=== PATIENT | female | born 1980 | race Caucasian/White ===

== ENCOUNTER 2016-05-05 14:56 | Emergency (ER) | payer OTHER ==
[~2016-05-05] VITALS: Ht 162.6 cm; Wt 105.4 kg
[~2016-05-05 14:56] MED LIST: BCPILLS PO; CARI350T28 PO; TRAM-10 PO
[2016-05-05 15:10] VITALS: Ht 162.6 cm; Wt 105.4 kg
[2016-05-05] MEDS ORDERED: PROMETHAZINE HCL INJ 25 MG/ML 1 ML VIAL IM STA (15:20)
[2016-05-05] MEDS ORDERED: MoRPHine SULFATE 10 MG/ML CARP/VIAL IM STA (15:20)
[2016-05-05] MEDS ORDERED: KETOROLAC TROMETHAMINE 60 MG/2 ML VIAL IM STA (15:20)
--- NOTE | 2016-05-05 15:53 | EMERGENCY ROOM VISIT NOTE ---
History Report prepared by Tono: Yokasta Saab Under the Supervision of: Dr. Tk Quan D.O. First contact with patient: 15:16 Chief Complaint: HEADACHE Stated Complaint: MIGRAINE WITH NAUSEA History of Present Illness The patient is a 35 year old female who presents to the Emergency Room with complaints of a persistent left sided headache starting this morning. She denies any pain radiation. She also complains of nausea but denies vomiting. She took Tramadol and Tylenol with some relief. She has a history of migraine headaches and describes her current headache to be similar. Her last similar episode occurred about 2 months ago. She denies any recent falls, trauma, or injuries to the head. She denies fevers, numbness, weakness, or any other complaints. She is on control and normally does not have menstrual periods. Source of History: patient Onset: this morning Position: head (left sided) Timing: other (persistent) Modifying Factors (Relieving): other (Tramadol and Tylenol with some relief) Associated Symptoms: + nausea, No fevers, No numbness, No vomiting, No weakness Review of Systems See HPI for pertinent positives & negatives. A total of 10 systems reviewed and were otherwise negative. Past Medical & Surgical Medical Problems: (1) Appendicitis (2) Right flank pain Family History Diabetes mellitus FH: heart disease Hypertension Social History Smoking Status: Never Smoker Marital Status: single Occupation Status: employed Current/Historical Medications Scheduled Control Pills ( Control Pills), 1 TAB PO DAILY Scheduled PRN Tramadol (Ultram), 50 MG PO Q6H PRN for Pain Allergies Coded Allergies: Efavirenz (Verified Allergy, Mild, RASH, 05/05/16) Lamivudine (Verified Allergy, Mild, RASH, 05/05/16) Penicillins (Verified Allergy, Mild, RASH, 05/05/16) Zidovudine (Verified Allergy, Mild, RASH, 05/05/16) Sertraline (Verified Adverse Reaction, Unknown, PER TOMAS WOODALL NP, NO ZOLOFT WHILE AT [facility] (07/27/11), 05/05/16) Physical Exam Vital Signs Date Time Temp Pulse Resp B/P Pulse Ox O2 Delivery O2 Flow Rate FiO2 05/05/16 17:08 69 18 135/73 99 Room Air 05/05/16 17:07 36.3 70 18 142/101 97 05/05/16 15:10 36.3 70 18 142/101 97 Room Air Physical Exam GENERAL: Patient is awake, alert, and in no acute distress. Patient is resting comfortably and showing no signs of anxiety EYES: The conjunctivae are clear. The pupils are round and reactive. EARS, NOSE, MOUTH AND THROAT: The nose is without any evidence of any deformity. Mucous membranes are moist tongue is midline NECK: The neck is nontender and supple. RESPIRATORY: Normal respiratory effort is noted there is no evidence of wheezing rhonchi or rales CARDIOVASCULAR: Regular rate and rhythm noted there no murmurs rubs or gallops normal S1 normal S2 GASTROINTESTINAL: The abdomen is soft. Bowel sounds are present in all quadrants. Abdomen is nontender MUSCULOSKELETAL/EXTREMITIES: There is no evidence of gross deformity full range of motion is noted in the hips and shoulders SKIN: There is no obvious evidence of any rash. There are no petechiae, pallor or cyanosis noted. NEUROLOGIC: Patient is awake alert and oriented x3 strength is symmetric patellar reflexes are 2+ bilaterally Medical Decision & Procedures Medications Administered Medications (Trade) Dose Ordered Sig/Helder Route Start Time Stop Time Status Last Admin Dose Admin Morphine Sulfate (MoRPHine SULFATE INJ) 6 mg NOW STAT IM 05/05/16 15:20 05/05/16 15:21 DC 05/05/16 15:58 6 MG Ketorolac Tromethamine (Toradol Inj) 60 mg NOW STAT IM 05/05/16 15:20 05/05/16 15:21 DC 05/05/16 16:00 60 MG Promethazine HCl (Phenergan Inj) 25 mg NOW STAT IM 05/05/16 15:20 05/05/16 15:21 DC 05/05/16 15:58 25 MG ED Course 1516: The patient was evaluated in room A10. A complete history and physical examination were performed. 1520: Phenergan Inj 25 mg IM, Toradol Inj 60 mg IM, Morphine Sulfate 6 mg IM 1715: Upon reevaluation, the patient is feeling better. I discussed the results and treatment plan with her. She verbalized agreement of the treatment plan. The patient was discharged home. Medical Decision Prior records/ancillary studies reviewed. Triage Nursing notes reviewed. The patient's history was concerning for headache. Differential diagnosis: Etiologies such as migraine headache, meningitis, sinusitis, CO exposure, ICH, SAH, infection, tumor, headache, sinus thrombosis, arterial dissection, as well as others were entertained. The patient is a 35-year-old female who presented to the emergency department for an evaluation of headache. The patient is a history of chronic migraine headaches and states that this is similar to her previous headaches. She had no meningismus or fever. She has no focal neurologic deficit. She was treated with pain medication that she received in the past and on subsequent reevaluation she was feeling much better. I discussed the patient's laboratory and radiographic studies with her. She was encouraged to rest and avoid any strenuous activity. She was also encouraged to follow-up with her primary care physician as soon as possible. She was also encouraged to continue all medications as prescribed and return to the emergency department immediately if symptoms change worsen or the need arises. Impression Primary Impression: Headache Scribe Attestation The scribe's documentation has been prepared under my direction and personally reviewed by me in its entirety. I confirm that the note above accurately reflects all work, treatment, procedures, and medical decision making performed by me. Departure Information Dispostion Home / Self-Care Referrals Geovani Sebastian M.D. (PCP) Forms HOME CARE DOCUMENTATION FORM, IMPORTANT VISIT INFORMATION Patient Instructions Headache Pain, My [facility] Additional Instructions Resident continue all medications as prescribed. Rest and avoid any strenuous activity. Follow-up with your family doctor soon as possible. Problem Qualifiers Primary Impression: Headache Headache type: unspecified Headache chronicity pattern: acute headache Intractability: not intractable Qualified Codes: R51 - Headache
[2016-05-05 17:07] VITALS: TEMP 36.3
[2016-05-05 17:08] VITALS: BP 135/73; PULSE 69; O2SAT 99
== END 2016-05-05 17:08 | disposition home or self-care (01) ==
LOC: C.EDB 14:57 → C.EDA 17:08
DX: R51 Headache (principal); Z87.19 Personal history of other diseases of the digestive system; Z88.0 Allergy status to penicillin; Z88.8 Allergy status to other drugs, medicaments and biological substances; Z83.3 Family history of diabetes mellitus; Z82.49 Family history of ischemic heart disease and other diseases of the circulatory system

== ENCOUNTER 2016-10-25 19:41 | Emergency (ER) | payer OTHER ==
[~2016-10-25] VITALS: Ht 162.6 cm; Wt 106.0 kg
[~2016-10-25 19:41] MED LIST changes: -CARI350T28 PO
[2016-10-25 19:47] VITALS: TEMP 36.4; Ht 162.6 cm; Wt 106.0 kg
[2016-10-25] MEDS ORDERED: KETOROLAC TROMETHAMINE 60 MG/2 ML VIAL IM STA (21:29)
[2016-10-25] MEDS ORDERED: PROMETHAZINE HCL INJ 25 MG/ML 1 ML VIAL IM STA (21:29)
--- NOTE | 2016-10-25 21:54 | EMERGENCY ROOM VISIT NOTE ---
ED Visit Note First contact with patient: 21:10 CHIEF COMPLAINT: Severe headache today HISTORY OF PRESENT ILLNESS: This 36-year-old female patient presents to the emergency department with complaint of a migraine that started today. She had gradual onset of a severe, left-sided headache approximately 8 hours ago. Patient states that she normally takes tramadol for her headaches as soon as they start, however she was at nursing clinical today and wasn't able to take tramadol until she got home around 5 PM today. She has not had any improvement in the headache with tramadol. There has been associated photophobia, phonophobia, dizziness, nausea but no vomiting. The patient denies fever or chills recently, and there is no weakness or numbness of the extremities. There is no difficulty with speech or vision. No trauma to the head and no neck pain. The pain is severe, constant, and it is slowly increasing in severity. This is not the worst headache of the life and is similar to previous migraines. Previous imaging studies of the brain (CT scans) have been normal. REVIEW OF SYSTEMS: Ears: No pain or change in hearing. Neck: No pain, stiffness, or swelling. Neurological: No changes in mental status, vertigo, focal weakness, numbness. Cardiac: No chest pain, diaphoresis, dyspnea on exertion, orthopnea, pedal edema, or palpitations. Respiratory: No cough, change in sputum, wheezes, hemoptysis, shortness of breath, or stridor. Gastrointestinal: No abdominal pain, blood in stools, diarrhea, loss of appetite, nausea, or vomiting. Skin: No rash, new lesions, or masses. General : No fever or chills, fatigue, loss of appetite, or significant recent weight gain or loss. PMH: The patient is healthy; there is no significant medical or surgical history. SOCIAL HISTORY: Patient lives at home. PHYSICAL EXAM: Vital Signs: Reviewed Nurse's notes. MENTAL STATUS: Alert, oriented, and coherent. In great distress from the headache. NECK: Supple, nontender, no lymphadenopathy. HEART: Regular rhythm and normal rate without murmurs, ectopy, gallops, or rubs. SKIN: Normal. NEUROLOGICAL: Pupils are round, equal and react to light. The optic fundi are normal and the discs are flat. EOMs are full and there is no nystagmus. The patient moves all extremities well and the gait is normal. No neurologic deficits noted. EMERGENCY DEPARTMENT COURSE: I examined the patient. Neurologic exam is normal and patient states that this is very similar to previous migraines for her. The patient was given IM Toradol 60 mg and IM Phenergan 25 mg, which she has had in the past with good relief. On reassessment, the patient reports significant relief of the pain. She is requesting a referral to see a neurologist for further management of her headaches which she states have become more frequent for her, this was provided. She was encouraged to follow up with her PCP in the meantime, and given return precautions should any of her symptoms worsen, she verbalized understanding. Patient was discharged home in stable condition and ambulatory. Problem List Medical Problems: (1) Appendicitis Status: Resolved (2) Right flank pain Status: Resolved Current/Historical Medications Scheduled Control Pills ( Control Pills), 1 TAB PO DAILY Scheduled PRN Tramadol (Ultram), 50 MG PO Q6H PRN for Pain Allergies Coded Allergies: Efavirenz (Verified Allergy, Mild, RASH, 10/25/16) Lamivudine (Verified Allergy, Mild, RASH, 10/25/16) Penicillins (Verified Allergy, Mild, RASH, 10/25/16) Zidovudine (Verified Allergy, Mild, RASH, 10/25/16) Sertraline (Verified Adverse Reaction, Unknown, PER TOMAS WOODALL, SOPHY, NO ZOLOFT WHILE AT [facility] (07/27/11), 05/05/16) Vital Signs Date Time Temp Pulse Resp B/P (MAP) Pulse Ox O2 Delivery O2 Flow Rate FiO2 10/25/16 22:16 78 20 121/78 97 Room Air 10/25/16 19:47 36.4 68 18 154/107 98 Room Air Medications Administered Medications (Trade) Dose Ordered Sig/Helder Route Start Time Stop Time Status Last Admin Dose Admin Ketorolac Tromethamine (Toradol Inj) 60 mg NOW STAT IM 10/25/16 21:29 10/25/16 21:30 DC 10/25/16 21:40 60 MG Promethazine HCl (Phenergan Inj) 25 mg NOW STAT IM 10/25/16 21:29 10/25/16 21:30 DC 10/25/16 21:39 25 MG Departure Information Impression Primary Impression: Migraine Dispostion Home / Self-Care Condition GOOD Referrals Geovani Sebastian M.D. (PCP) Lino Carmichael M.D. (MEDICINE) Patient Instructions ED Headache Migraine, My [facility] Additional Instructions DO NOT drive, drink alcohol, operate machinery, or perform dangerous activities today. You were given medications in the ER that can affect your ability to safely function or operate a vehicle. Rest today in a quiet, peaceful, dark environment and get a full 8-10 hrs of sleep tonight. Avoid loud noises, smoke/smoking, alcohol, bright lights, stress, or physical exertion today to minimize the chance the headache may return. Continue current medications as prescribed. Ibuprofen(Motrin, Advil) may be used for fever or pain. Use 600mg every six hours as needed. Take with food. Avoid using more than 2400mg in a 24 hour period. Do not use 2400mg per day for more than three consecutive days without physician direction. Prolonged inappropriate use can lead to stomach upset or ulcers. (AND/OR) Acetaminophen(Tylenol) may be used for fever or pain. Use 1000mg every 8 hours as needed. Avoid using more than 3000 mg in a 24 hour period. Drink plenty of fluids to stay hydrated. Dehydration can make migraines worse. Return to the ER for passing out, worsening headache, vision problems, neck stiffness/pain, fevers, vomiting, worsening of your condition, or as needed. Follow up with your primary physician in 2-3 days for a recheck of your current condition. May also benefit from being seen by a neurologist. You may call Dr. Carmichael's office for an appointment, or seek a referral through your PCP. Problem Qualifiers Primary Impression: Migraine Migraine type: unspecified Status migrainosus presence: without status migrainosus Intractability: not intractable Qualified Codes: G43.909 - Migraine, unspecified, not intractable, without status migrainosus
[2016-10-25 22:16] VITALS: BP 121/78; PULSE 78; O2SAT 97
== END 2016-10-25 22:33 | disposition home or self-care (01) ==
LOC: C.EDB 19:43 → C.EDD 22:33
DX: G43.909 Migraine, unspecified, not intractable, without status migrainosus (principal); Z79.3 Long term (current) use of hormonal contraceptives

== ENCOUNTER 2017-02-23 04:57 | Day surgery (SDC) | payer OTHER ==
[2017-02-14 14:39] VITALS: BMI 39.0
--- NOTE | 2017-02-14 15:08 | PAT Medication Instructions ---
Service Date Feb 14, 2017. Current Home Medication List Calcium Carbonate (Tums), 1-2 TAB PO PRN Cyclobenzaprine Hcl (Flexeril), 10 MG PO TID PRN for PRN Hydrocortisone 2.5% (Rectal) (Anusol-Hc 2.5%), 1 APPLN TOP BID PRN for PRN Norethin Acet & Estrad-Fe (Laverne Fe 1.5/30 1.5-30 mg-Mcg), 1 TAB PO HS Tramadol (Ultram), 50 MG PO Q6H PRN for Pain Medication Instructions For Your Scheduled Surgery - Check [facility] surgeon for instructions: Norethin Acet & Estrad-Fe (Laverne Fe 1.5/30 1.5-30 mg-Mcg), 1 TAB PO HS - Hold the following medications 24 hours prior to surgery: Hydrocortisone 2.5% (Rectal) (Anusol-Hc 2.5%), 1 APPLN TOP BID PRN for PRN - Hold the following medications the morning of surgery: Calcium Carbonate (Tums), 1-2 TAB PO PRN Cyclobenzaprine Hcl (Flexeril), 10 MG PO TID PRN for PRN - Take the following medications the morning of surgery with a sip of water: Tramadol (Ultram), 50 MG PO Q6H PRN for Pain (okay to take up to 4 hours prior to surgery if needed) - Take the following medications as scheduled the night before surgery: Tramadol (Ultram), 50 MG PO Q6H PRN for Pain (if needed) Calcium Carbonate (Tums), 1-2 TAB PO PRN (if needed) Cyclobenzaprine Hcl (Flexeril), 10 MG PO TID PRN for PRN (if needed) If you have any questions please call us at [phone] or [phone] or [phone]
[2017-02-14 15:25] LABS: BASO % 0.9 %; BASO ABS # 0.05 K/uL (0-0.2); EOS % 5.3 %; EOS ABS # 0.31 K/uL (0-0.5); HEMATOCRIT 38.6 % (37-47); HEMOGLOBIN 12.8 g/dL (12.0-16.0); LYMPH % 24.6 %; LYMPH ABS # 1.44 K/uL (1.2-3.4); MEAN CELL VOLUME 85.4 fL (80-100); MEAN CORPUSCULAR HEMOGLOBIN 28.3 pg (25-34); MEAN CORPUSCULAR HGB CONC 33.2 g/dl (32-36); MONO % 6.3 %; MONO ABS # 0.37 K/uL (0.11-0.59); NEUT % 62.9 %; NEUT ABS # 3.69 K/uL (1.4-6.5); PLATELET COUNT 185 K/uL (130-400); RED CELL DISTRIBUTION WIDTH SD 43.8 fL (36.4-46.3); WHITE BLOOD COUNT 5.86 K/uL (4.8-10.8)
[~2017-02-23] VITALS: Ht 162.6 cm; Wt 107.2 kg
[~2017-02-23 04:57] MED LIST changes: -BCPILLS PO; +CALC500C3 PO; +CYCL10TA6 PO; +HYDR2.5C37 TOP; +NORE1TAB93 PO
[2017-02-23 05:42] VITALS: BP 145/82; PULSE 77; TEMP 36.5; O2SAT 97; Ht 162.6 cm; Wt 107.2 kg
[2017-02-23] MEDS ORDERED: LACTATED RINGER'S 1000ML 1,000 ML IV SCH ×2 (06:00)
[2017-02-23] MEDS ORDERED: LACTATED RINGER'S 1000ML 500 ML IV SCH (06:00)
[2017-02-23] MEDS ORDERED: MIDAZOLAM HCL 1 MG/ML 2ML VIAL ONE (06:55)
[2017-02-23] MEDS ORDERED: FENTANYL CITRATE INJ 50 MCG/1 ML 2 ML VIAL ONE ×2 (06:55→08:15)
--- NOTE | 2017-02-23 06:56 | History & Physical Bridge Note ---
H&P Re-Evaluation Bridge Note: I have examined the patient, reviewed the History & Physical and in the interval since the performance of the History & Physical I have noted the following changes of clinical significance: No changes noted
[2017-02-23] MEDS ORDERED: BUPIVACAINE 0.5 % 5 MG/1 ML MPF 30ML VIAL ONE (07:06)
[2017-02-23] MEDS ORDERED: NEOSTIGMINE METHYLSULFATE 5 MG/5 ML SYR ONE (07:27)
[2017-02-23] MEDS ORDERED: PROPOFOL IV EMULSION 10 MG/ML 20 ML VIAL IV ONE (07:27)
[2017-02-23] MEDS ORDERED: LIDOCAINE HCL 2% 2 ML VIAL (20MG/ML) ONE (07:27)
[2017-02-23] MEDS ORDERED: DEXAMETHASONE SOD INJ 4 MG/ML VIAL ONE (07:27)
[2017-02-23] MEDS ORDERED: GLYCOPYRROLATE INJ 0.2 MG/ML VIAL ONE (07:27)
[2017-02-23] MEDS ORDERED: ONDANSETRON INJ 2 MG/ML 2 ML VIAL ONE (07:27)
[2017-02-23] MEDS ORDERED: ROCURONIUM BROMIDE 10 MG/ML 5 ML VIAL IV ONE (07:27)
[2017-02-23] MEDS ORDERED: KETOROLAC TROMETHAMINE 30 MG/ML VIAL ONE (08:11)
[2017-02-23] MEDS ORDERED: MTR600X PO (08:25)
--- NOTE | 2017-02-23 08:28 | Discharge Instructions ---
Discharge Instructions Date of Service Feb 23, 2017. Admission Reason for Admission: Desires Permanent Sterilization Discharge Discharge Diagnosis / Problem: postop Discharge Goals Goal(s): Routine recovery after surgery Activity Recommendations Activity Limitations: as noted below ACTIVITY RECOMMENDATIONS: * Rest the first 2-3 days. You should be back to your normal activity levels by day 3. * No heavy lifting for 2 weeks. * No intercourse, tampons or douching for 1-2 weeks. * You may shower the next day. * Do not drive anytime that you are taking narcotic pain medicines. RETURN TO SCHOOL/WORK: * May return to school or work after 2-3 days. DIET: Nausea may occur in the immediate post-operative period. If so, take clear liquids such as tea, bouillon, apple juice until all nausea has subsided, then resume usual diet. MEDICATIONS: Resume previous medications unless instructed otherwise by your surgeon. Ibuprofen 200mg 2-3 tablets every 4-6 hours as needed -- OR -- Aleve 2 tablets every 8-12 hours as needed for post-operative discomfort Medications are over the counter. Tylenol may be used if above medications are contraindicated or not preferred. Medication should be taken with food or milk. Do not take on an empty stomach. SPECIAL CARE INSTRUCTIONS: * Check temperature twice daily for one week. report any elevation over 101 degrees. * You may experience some vagina spotting and/or bleeding. This is normal for 1 -2 weeks and should not be heavier than a normal period. If it is unusual in amount, call your physician. * Post-operative discomfort may consist of a sore throat, a "bloated" feeling and pain in the shoulders. these are normal symptoms, which usually only last for 2-3 days. * Remove band-aids tomorrow and shower. There is no need to replace band-aids unless there is drainage or discomfort. FOLLOW UP VISIT: Call your doctor's office for a post-operative 2 week visit if not already scheduled. See HPI for pertinent positives & negatives. A total of 6 systems reviewed and were otherwise negative. . Current Hospital Diet Patient's current hospital diet: Discharge Diet Recommended Diet: Regular Diet Procedures Procedures Performed: Bilateral Laparoscopic Salpingectomy Pending Studies Studies pending at discharge: no Medical Emergencies . Who to Call and When: Medical Emergencies: If at any time you feel your situation is an emergency, please call 911 immediately. . Non-Emergent Contact Non-Emergency issues call your: Specialist . . "Provider Documentation" section prepared by Jennifer Tapia. . VTE Core Measure Inpt VTE Proph given/why not?: Treatment not indicated
[2017-02-23] MEDS ORDERED: PROMETHAZINE HCL INJ 25 MG in SODIUM CHLORIDE 0.9% 50ML 50 ML IV PRN (08:30)
[2017-02-23] MEDS ORDERED: HYDROmorphone INJ 1 MG/ML SYR IV PRN (08:30)
[2017-02-23] MEDS ORDERED: KETOROLAC TROMETHAMINE 30 MG/ML VIAL IV. PRN (08:30)
[2017-02-23] MEDS ORDERED: EpHEDrine SULFATE INJ 50 MG/ML AMP IV PRN (08:30)
[2017-02-23] MEDS ORDERED: OXYCODONE/ACETAMINOPHEN 5-325 TAB PO PRN ×2 (08:30)
[2017-02-23] MEDS ORDERED: ONDANSETRON INJ 2 MG/ML 2 ML VIAL IV PRN ×2 (08:30)
[2017-02-23] MEDS ORDERED: ATROPINE SULFATE 0.1 MG/ML 5ML SYR IV PRN (08:30)
--- NOTE | 2017-02-23 08:30 | [facility] Post Operative Brief Note ---
Immediate Operative Summary Operative Date Feb 23, 2017. Pre-Operative Diagnosis Desires permanent sterilization Post-Operative Diagnosis Desires permanent sterilization Procedure(s) Performed Bilateral Laparoscopic Salpingectomy Surgeon Dr. Jennifer Gaytan Dry Wall Installations Mechanic Surgeon(s) Dr. Raji Atkins Estimated Blood Loss 10ml Findings Consistent with Post-Op Diagnosis Fluids (cc crystalloids) 1000 ml Specimens A. Bilateral Fallopian Tubes Drains None Anesthesia Type General Complication(s) none Disposition Disposition: Recovery Room / PACU
[2017-02-23] MEDS: FENTANYL CITRATE INJ 50 MCG/1 ML 2 ML VIAL IV PRN ×4 (08:53→09:08)
[2017-02-23] MEDS ORDERED: SODIUM CHLORIDE 0.9% 1000ML 1,000 ML IV SCH (09:00)
--- NOTE | 2017-02-23 09:00 | [facility] Operative Report ---
Operative Report Operative Date Feb 23, 2017. Pre-Operative Diagnosis Desires permanent sterilization Post-Operative Diagnosis Desires permanent sterilization Procedure(s) Performed Bilateral Laparoscopic Salpingectomy Surgeon Dr. Jennifer Gaytan Shirt Operator Surgeon(s) Dr. Raji Atkins Estimated Blood Loss 10ml Findings Normal size anteverted uterus Normal appearing bilateral fallopian tubes and ovary Normal appearing liver edge Appendix not visualized Fluids 1000 ml Specimens A. Bilateral Fallopian Tubes Drains None Anesthesia General Endotracheal Anesthesia Complication(s) None Disposition Recovery Room / PACU Description of Procedure After obtaining informed consent, the Patient was brought to the operating room and placed supine on the operating table for bilateral laparoscopic salpingectomy. General endotracheal anesthesia was then administered. The patient was then placed in the dorsal lithotomy position and prepped and draped in the usual sterile fashion. A franco catheter was placed in the bladder. A weighted speculum and Fernandes retractor was placed in the vagina, the cervix was well visualized and the anterior lip of the cervix was gently grasped with a single tooth tenaculum. A acorn uterine manipulator was then placed into the uterus. Attention was then turned to the abdomen where a 5 mm incision was made. A 5 mm trocar containing a 5 mm 0-degree scope was placed into the abdomen under direct visualization . Pneumoperitoneum was then created with CO2 gas. Two other ports were then placed under direct visualization using a 5 mm trocars in the left and right lower quadrants. Systematic examination of the pelvis revealed the above findings. The right fallopian tube was stabilized using a grasper and Harmonic scalpel was used to dissect the tube away from the mesosalpinx and the ovary and also used to come across the tubal insertion into the uterus. The same procedure was completed on the contralateral side. Both fallopian tubes were removed from the pelvis under direct visualization through the 5 mm trocar and sent for pathological evaluation. The tissue at the right fallopian tube was noted to be oozing. The kleppinger's forceps were used to coagulate the oozing area. All operative sites was examined and found to be hemostatic. The pelvis was then copiously irrigated and suctioned. All instruments were then removed from the patient's abdomen and the gas was suctioned out of her abdomen. The skin incisions were closed with 4-0 monocryl in a subcuticular fashion. Dermabond was then applied to all incision sites. All sponge and instrument counts were correct x 2 at the end of the procedure. The franco catheter and uterine manipulator were also removed. The patient tolerated the procedure well and was transferred to the recovery room in stable condition. I attest to the content of the Intraoperative Record and any orders documented therein. Any exceptions are noted below.
--- NOTE | 2017-02-23 09:15 | Anesthesiology Progress Note ---
Anesthesia Post Op Note Date & Time Feb 23, 2017 at 09:14 Vital Signs Pain Intensity: 3 Vital Signs Past 12 Hours Date Time Temp Pulse Resp B/P (MAP) Pulse Ox O2 Delivery O2 Flow Rate FiO2 02/23/17 09:10 36.4 66 16 123/79 94 Room Air 02/23/17 09:00 66 16 111/82 94 Room Air 02/23/17 08:50 67 16 122/85 100 Oxymask 10 02/23/17 08:40 81 18 117/82 100 Oxymask 10 02/23/17 08:32 36.2 66 16 146/94 99 Oxymask 10 02/23/17 05:42 36.5 77 18 145/82 (103) 97 Room Air Notes Mental Status: alert / awake / arousable, participated in evaluation Pt Amnestic to Procedure: Yes Nausea / Vomiting: adequately controlled Pain: adequately controlled Airway Patency, RR, SpO2: stable & adequate BP & HR: stable & adequate Hydration State: stable & adequate Anesthetic Complications: no major complications apparent Patient has slight broken blood vessel of her face stemming from head down positioning in the operating room. Not present on other parts of her body. Patient is aware and will continue to monitor.
[2017-02-23 09:47] VITALS: BP 115/72; PULSE 74; TEMP 36.9; O2SAT 94
[2017-02-23 10:17] VITALS: BP 121/75; PULSE 83; O2SAT 97
[2017-02-23 10:47] VITALS: BP 125/79; PULSE 89; O2SAT 98
== END 2017-02-23 11:44 | disposition home or self-care (01) ==
LOC: C.ACU 04:57
PROVIDERS: ATTEND Obstetrics & Gynecology Obstetrics
DX: Z30.2 Encounter for sterilization (principal); Z88.0 Allergy status to penicillin; Z88.2 Allergy status to sulfonamides; Z83.3 Family history of diabetes mellitus; Z82.49 Family history of ischemic heart disease and other diseases of the circulatory system; E66.9 Obesity, unspecified; Z68.39 Body mass index [BMI] 39.0-39.9, adult

== ENCOUNTER 2017-05-14 18:40 | Emergency (ER) | payer OTHER ==
[~2017-05-14] VITALS: Ht 162.6 cm; Wt 111.3 kg
[~2017-05-14 18:40] MED LIST changes: +MTR600X PO; -NORE1TAB93 PO
[2017-05-14 18:57] VITALS: TEMP 36.4; Ht 162.6 cm; Wt 111.3 kg
[2017-05-14] MEDS ORDERED: PROMETHAZINE HCL INJ 25 MG/ML 1 ML VIAL IM STA (19:11)
[2017-05-14] MEDS ORDERED: KETOROLAC TROMETHAMINE 60 MG/2 ML VIAL IM STA (19:11)
[2017-05-14] MEDS ORDERED: PROM25TA9 PO (19:13)
--- NOTE | 2017-05-14 19:19 | EMERGENCY ROOM VISIT NOTE ---
History First contact with patient: 19:03 Chief Complaint: HEADACHE Stated Complaint: MIGRAINE WITH NAUSEA History of Present Illness The patient is a 36 year old female, history of migraine headaches, who presents to the Emergency Room with complaints of a migraine. The patient reports that her symptoms started this morning after awakening. The patient reports that she usually wakes up with migraines. Other than not having an aura which is typical with her migraines, the patient reports that her symptoms are similar to her prior migraines, describing it as a throbbing sensation behind the left eye. The patient reports light, sound and smell sensitivity. She reports nausea without vomiting. She denies any recent head injury or upper respiratory infection. She denies any difficulty with speech, swallowing or left-sided numbness/weakness. She rates her discomfort a 9 out of 10. The patient tried a tramadol this morning without any relief of her symptoms. She is currently under the management of Dr. Shirley he recently switched her to Elavil, vitamin D and magnesium. The patient believes that these medicines have helped her frequency of migraines, which she reports is usually twice monthly. Review of Systems 10 system review was performed and was negative except for pertinent positives and negatives as indicated in history of present illness Past Medical/Surgical History Medical Problems: (1) Appendicitis (2) Right flank pain Family History Diabetes mellitus FH: heart disease Hypertension Social History Smoking Status: Current Some Day Smoker Alcohol Use: none Marital Status: single Occupation Status: unemployed Current/Historical Medications Scheduled Calcium Carbonate (Tums), 1-2 TAB PO PRN Ibuprofen (Ibuprofen), 600 MG PO Q6H Scheduled PRN Cyclobenzaprine Hcl (Flexeril), 10 MG PO TID PRN for PRN Hydrocortisone 2.5% (Rectal) (Anusol-Hc 2.5%), 1 APPLN TOP BID PRN for PRN Promethazine Hcl (Phenergan), 25 MG PO Q6H PRN for Nausea Tramadol (Ultram), 50 MG PO Q6H PRN for Pain Physical Exam Vital Signs Date Time Temp Pulse Resp B/P (MAP) Pulse Ox O2 Delivery O2 Flow Rate FiO2 05/14/17 18:57 36.4 81 18 133/84 97 Room Air Physical Exam CONSTITUTIONAL: Healthy and well nourished. Alert and oriented X 3 with positive affect. Patient appears in moderate discomfort from pain. HEENT: Normocephalic, atraumatic. Pupils equal, round and reactive. The patient is photophobic, precluding funduscopic exam. No subconjunctival hemorrhage, conjunctival injection, periorbital edema, rhinorrhea, epistaxis, hemotympanum or storey sign. OROPHARYNX: No posterior pharyngeal erythema or tonsillar hypertrophy. NECK: Full active range of motion without discomfort. No JVD or carotid bruits. RESPIRATORY: Clear to auscultation bilaterally with no wheezing, crackles, rhonchi or stridor. CARDIOVASCULAR: Regular rate and rhythm with no murmurs, rubs or gallops. MUSCULOSKELETAL: Full range of motion of all joints without discomfort. INTEGUMENTARY: No rash or other significant dermatologic conditions noted. NEUROLOGIC: Cranial nerves II-XII grossly intact. No focal neurologic deficits noted. Negative pronator drift. No ataxia with ambulation. Medical Decision & Procedures ED Course Patient history and physical exam were performed. Nurse's notes were reviewed. Vital signs were reviewed and were normal. I did review the patient's most recent visit to the ER for a migraine. She reports that the treatment she received on that they provided the best relief. Review of those records shows that the patient received IM Toradol and Phenergan. The patient was therefore administered Toradol 60 mg and Phenergan 25 mg IM. The patient requested immediate discharge. The patient was provided a prescription for Phenergan as needed for nausea at home. She was encouraged to follow-up with Dr. Shirley as needed with any persistent migraine symptoms. Return to the emergency department as needed for progressively worsening pain, concerning neurologic symptoms or fever. The patient was happy with plan of care, and rated her discomfort a 6 out of 10 at the conclusion of my exam. Medical Decision Patient presents to the emergency department with complaint of a migraine headache that is similar to all prior migraines in the past. I therefore do not feel that further imaging or laboratory studies are warranted. History and clinical exam are not consistent with CVA/TIA, abscess, intracranial bleed, meningitis, temporal arteritis, meningitis or carbon monoxide poisoning. [place] Drug Monitoring Program Search Results: patient reviewed within database, no issues identified Medication Reconcilliation Current Medication List: was personally reviewed by me Blood Pressure Screening Patient's blood pressure: Normal blood pressure Impression Primary Impression: Migraine Departure Information Dispostion Home / Self-Care Prescriptions Promethazine Hcl (Phenergan) 25 Mg Tab 25 MG PO Q6H Y for Nausea, #20 TAB Prov: Marco Buckner PA 05/14/17 Referrals Geovani Sebastian M.D. (PCP) Lisa Shirley M.D. Forms HOME CARE DOCUMENTATION FORM, IMPORTANT VISIT INFORMATION Patient Instructions My [facility] Additional Instructions Follow-up with Dr. Shirley as needed for further migraine management. Return to the emergency department for any progressively worsening headache, fever, persistent vomiting or other concerning neurologic symptoms. A prescription has been provided for Phenergan as needed for nausea. You were treated today with Toradol 60 mg and Phenergan 25 mg intramuscular injections. Problem Qualifiers Primary Impression: Migraine Migraine type: without aura Status migrainosus presence: without status migrainosus Intractability: not intractable Qualified Codes: G43.009 - Migraine without aura, not intractable, without status migrainosus
[2017-05-14 19:50] VITALS: BP 133/78; PULSE 88; O2SAT 98
== END 2017-05-14 19:51 | disposition home or self-care (01) ==
LOC: C.EDB 18:41 → C.EDD 19:51
DX: G43.009 Migraine without aura, not intractable, without status migrainosus (principal); F17.210 Nicotine dependence, cigarettes, uncomplicated; Z79.899 Other long term (current) drug therapy

== ENCOUNTER 2021-09-24 13:25 | Observation (INO) ==
[~2021-09-24 13:25] MED LIST changes: -CALC500C3 PO; -CYCL10TA6 PO; -HYDR2.5C37 TOP; -MTR600X PO; +SODIUM CHLORIDE 0.9% 1000ML 1,000 ML IV SCH; -TRAM-10 PO
[2021-09-24] MEDS ORDERED: SODIUM CHLORIDE 0.9% 1000ML 1,000 ML IV ONE ×2 (13:41→14:16)
--- NOTE | 2021-09-24 13:46 | Emergency Department Note ---
Impression & Plan Vaginal bleeding, Shock, ABLA (acute blood loss anemia) ED Provider Note Provider: Ranyd Serrano MD DATE OF SERVICE: 09/24/2021 CHIEF COMPLAINT: Vaginal bleeding, lower abdominal pain. HISTORY OF PRESENT ILLNESS: Patient is a 41-year-old female history of migraines presenting here today 15 days status post a total hysterectomy laparoscopic done as an outpatient. Was having heavy vaginal bleeding and had this completed she reports without issue. No trauma or other significant postoperative bleeding reported. States that she was at the grocery store and all of a sudden had lower abdominal cramping and pain and then felt blood and noted vaginal bleeding fairly heavy. Ambulance was called and she was brought here. Denies feeling lightheaded or dizzy. Denies use of anticoagulants or aspirin. Denies any douches or intercourse or other trauma. Patient states she is still having vaginal cramping and pain. REVIEW OF SYSTEMS: A total of 10 review of systems was obtained and negative except as stated above in the HPI. PAST MEDICAL HISTORY: As noted above MEDICATIONS: Reviewed home medication list SOCIAL HISTORY: Works as a registered nurse with urology PHYSICAL EXAM: GENERAL: alert and oriented on the pelvic bed stretcher with some blood on her hands and through her jeans shorts. Head: normocephalic and atraumatic EYES: No injection, discharge or icterus. NECK: Trachea midline. ENT: Mucous membranes pink and moist. LUNGS: Airway patent. No retractions HEART: Regular rate and rhythm. No chest wall tenderness ABDOMEN: Soft with some lower abdominal tenderness. : With nurses and techs at bedside quick bedside vaginal examination was completed. The external vagina after removing the jeans shorts as clotted blood and a small mount of red blood trickling from the vaginal canal. An approximately 4 cm sphere of blood clot was in the underwear and another 4 cm superior very quickly then comes out of the vagina onto the bed. SKIN: Acyanotic, warm, dry, without rashes EXTREMITIES: Without swelling, tenderness or deformity NEUROLOGICAL: No focal deficits. No aphasia. No facial droop or slurred speech. CONTINUOUS CARDIAC MONITORING: was ordered and showed a heart rate of 50s-80s bpm in NSR to sinus bradycardia Patient's laboratory studies reviewed. Differential includes postoperative bleeding from laceration or cuff dehiscence, intra-abdominal bleeding, or other etiologies were considered. IMPRESSION/MEDICAL DECISION MAKING: Patient with significant vaginal bleeding status post laparoscopic total hysterectomy including the cervix 2 weeks ago. No trauma history. No anticoagulation or blood thinner history reported. Lower abdominal cramping and pain now significant vaginal bleeding. Not initially hypotensive or tachycardic. Given some IV fluids. Blood counts obtained. Discussed quickly after arrival with on-call gynecology. They plan to come to bedside. Unable to get a good speculum exam due to blood and clots coming from the vaginal canal myself. Recent COVID 8 days ago and COVID-positive today. Gynecology came to the ER due to speculum exam with significant bleeding and packed the vaginal canal. Patient had pain with this and given a small amount of fentanyl received only 25 mcg as she became nauseous and had a vagal response with some transient bradycardia and hypotension. Received additional IV fluid. Repeat H&H was sent as well as second type for the blood bank and 2 units were ordered to be typed and crossed. Gynecology questioned proceeding with CT scan but decided given continued bleeding they would proceed directly to the OR. They consented the patient at bedside. While awaiting the OR to be prepared anesthesia came to bedside and evaluated and consented the patient. Patient did become more hypotensive and was feeling more lightheaded. 2 units of uncrossed blood were brought to bedside and administered (patient has bilateral 18g IVs, rapid infuser setup used) as well as 500 cc of additional normal saline (total 2.5L IVF). 2 additional units of uncrossed blood were sent to the OR. Blood pressure did improve after hypotension into the 50s systolic transiently systolic blood pressure approximately 100 when leaving the ER. Not tachycardic. Blood bank is working on type-specific blood. Anesthesia was aware and at bedside. Dr. Le was also aware and intermittently at bedside as she prepared for the operating room. I did verbally consent the patient in the presence of the nurses for uncrossed blood and blood transfusion. Very brief update of family given the emergent nature and the patient's critical illness. DIAGNOSIS: Vaginal bleeding, hypotension/shock, acute blood loss anemia DISPOSITION: Taken to the OR by gynecology Critical Care I have personally spent 62 minutes of critical care time in the direct management of this patient. This includes bedside care, interpretation of diagnostic studies, and testing, discussion with consultants, patient, and family members, and other required patient management activities. These 62 isaias shoshana is in excess of all separately billable procedures. Past Med/Surg History Medical History Chronic constipation Depression Difficult intubation Laparoscopic Cholecystectomy with Cholangiogram Laparoscopic Appendectomy Dr. Maldonado 04/22/2020. Grade 3 view, Pantoja 2, glidescope 4, ETT 7.5. 3 attempts. Fatty liver Possible (per ultrasound) History of COVID-19 02/2021, pcr test, not hospitalzied, muscle aches, "respiratory symptoms">resolved. Hx of fall 2021, fractured 1 rib "now healed" Low back pain radiating to lower extremity Migraines Myofascial pain Surgical History History of arthroscopy of right shoulder Right shoulder arthroscopy, RCR: 09/25/19: LMA#4 + PNB at [facility] [place] History of colonoscopy History of dilation and curettage D&E History of laparoscopic appendectomy (04/22/20) Laparoscopic Cholecystectomy with Cholangiogram Laparoscopic Appendectomy Dr. Maldonado 04/22/2020. Grade 3 view, Pantoja 2, glidescope 4, ETT 7.5. 3 attempts. Hx of colonoscopy Hx of endoscopy Hx of tubal ligation Family History Father Diabetes Mother Diabetes Cancer Uterine Cancer Hypertension Sister Diabetes Hypertension Grandmother (Maternal) Cancer Uterine cancer Brother Diabetes Other No significant family history Social History Smoking Status: Never smoker Second Hand Exposure: No; Hx Alcohol Use: No Hx Substance Use: No Preferred Language: Ivorian Communication Ability: Effective Visual Impairment: No Limitations Director Of Clinical Trials Required: No Beliefs That Will Affect Care: None marital status: Single Current Living Situation: Family and Significant Other Current Living Situation Comment: LIVES WITH BOYFRIEND , DAUGHTER AND BOYFRIEND'S SISTER Feels Safe at Home: Yes Sunscreen Use: Yes Assistive Devices: Contacts Allergies Allergies Allergy/AdvReac Type Severity Reaction Status Date / Time efavirenz Allergy Intermediate Rash Verified 08/26/21 11:35 lamivudine Allergy Intermediate Rash Verified 08/26/21 11:35 Penicillins Allergy Intermediate Rash Verified 08/26/21 11:35 sulfamethoxazole Allergy Intermediate Globus Verified 08/26/21 11:35 [From Bactrim] sensation trimethoprim [From Bactrim] Allergy Intermediate Globus Verified 08/26/21 11:35 sensation zidovudine Allergy Intermediate Rash Verified 08/26/21 11:35 Home Meds Home Medications Medication Instructions Recorded Confirmed bupropion HCl 150 mg 24 hr tablet, 300 mg PO QAM 03/21/18 09/09/21 extended release carisoprodol 350 mg tablet (Soma) 350 mg PO TID PRN muscle pain 01/22/19 09/09/21 lubiprostone 24 mcg capsule 24 mcg PO BID 07/24/19 09/09/21 (Amitiza) ketorolac 10 mg tablet 10 mg PO QAM PRN Pain 04/02/20 09/09/21 rimegepant 75 mg disintegrating 75 mg PO UD PRN MIGRAINES 04/02/20 09/09/21 tablet (Nurtec ODT) tramadol 50 mg tablet 50 mg PO Q6H PRN migraines 04/07/21 09/09/21 [id number]-yfopikugogxke-[id number] 1 cap PO Q4H PRN Migraine Headache 05/07/21 09/09/21 50 mg-300 mg-40 mg capsule Previous Rx's Medication Instructions Recorded nitrofurantoin 100 mg PO Q12H PRN UTI symptoms 5 07/15/21 monohydrate/macrocrystals 100 mg days #10 caps capsule (Macrobid) phenazopyridine 200 mg tablet 200 mg PO TID PRN pain #10 tabs 09/20/21 (Pyridium) Results & Data (ED) Vital Signs Vital Signs - 24 hr 09/24/21 13:50 09/24/21 13:39 09/24/21 13:41 Temperature 36.3 C L Temperature Source Oral Pulse Rate 82 Pulse Rate [Left Finger] 77 Pulse Rhythm [Left Finger] Regular Respiratory Rate 17 22 Respiratory Effort / Characteristics Non-Labored Respiratory Depth Normal Normal Normal Blood Pressure Blood Pressure [Left Arm] 129/70 127/83 Blood Pressure Mean Blood Pressure Mean [Left Arm] 89 97 Pulse Oximetry 100 98 98 Oxygen Delivery Method Room Air Room Air Room Air Oxygen Flow Rate Sepsis Recent Fever Within 48 Hours No Sepsis New/Unexplained Change in Mental Status N/A Sepsis Action Taken by Nursing No Action Required 09/24/21 14:00 09/24/21 14:21 09/24/21 14:33 Temperature Temperature Source Pulse Rate Pulse Rate [Left Finger] 86 64 Pulse Rhythm [Left Finger] Respiratory Rate 18 18 16 Respiratory Effort / Characteristics Respiratory Depth Normal Blood Pressure Blood Pressure [Left Arm] 128/72 100/51 L 118/68 Blood Pressure Mean Blood Pressure Mean [Left Arm] 90 67 84 Pulse Oximetry 100 100 97 Oxygen Delivery Method Room Air Room Air Room Air Oxygen Flow Rate Sepsis Recent Fever Within 48 Hours Sepsis New/Unexplained Change in Mental Status Sepsis Action Taken by Nursing 09/24/21 14:53 09/24/21 15:16 09/24/21 15:20 Temperature Temperature Source Pulse Rate 68 Pulse Rate [Left Finger] 88 81 Pulse Rhythm [Left Finger] Regular Regular Respiratory Rate 16 18 20 Respiratory Effort / Characteristics Respiratory Depth Normal Normal Blood Pressure 99/65 L Blood Pressure [Left Arm] 93/78 L 106/56 L Blood Pressure Mean 76 Blood Pressure Mean [Left Arm] 83 72 Pulse Oximetry 95 100 97 Oxygen Delivery Method Room Air Nasal Cannula Oxygen Flow Rate 2 Sepsis Recent Fever Within 48 Hours Sepsis New/Unexplained Change in Mental Status Sepsis Action Taken by Nursing 09/24/21 14:52 09/24/21 14:59 Temperature Temperature Source Pulse Rate Pulse Rate [Left Finger] 86 46 L Pulse Rhythm [Left Finger] Regular Respiratory Rate 18 16 Respiratory Effort / Characteristics Non-Labored Respiratory Depth Normal Blood Pressure Blood Pressure [Left Arm] 93/78 L 53/28 L Blood Pressure Mean Blood Pressure Mean [Left Arm] 83 36 Pulse Oximetry 98 95 Oxygen Delivery Method Room Air Nasal Cannula Oxygen Flow Rate 2 Sepsis Recent Fever Within 48 Hours Sepsis New/Unexplained Change in Mental Status Sepsis Action Taken by Nursing Laboratory Data Result diagrams: 09/24/21 14:42 09/24/21 13:43 Lab Results 09/24/21 09/24/21 09/24/21 Range/Units 13:43 13:43 13:43 WBC 8.81 (4.8-10.8) K/ul RBC 3.87 L (3.93-5.22) M/uL Hgb 11.4 L (12.0-16.0) g/dl POC Hgb (12.0-16.0) g/dl Hct 33.7 L (34.1-44.9) % POC Hct (37-47) % MCV 87.1 (80.0-100.0) fL MCH 29.5 (25.0-34.0) pg MCHC 33.8 (32.0-36.0) g/dL RDW Std Deviation 39.7 (36.4-46.3) fL RDW Coeff of Lissette 12.5 (11.5-14.5) % Plt Count 222 (130-400) K/uL MPV 11.4 (9.4-12.3) fL Immature Gran % (Auto) 0.1 % Neut % (Auto) 73.3 % Lymph % (Auto) 19.9 % [place] % (Auto) 5.8 % Eos % (Auto) 0.6 % Baso % (Auto) 0.3 % Neut # (Auto) 6.46 (1.4-6.5) K/uL Lymph # (Auto) 1.75 (1.2-3.4) K/uL [place] # (Auto) 0.51 (0.24-0.82) K/uL Eos # (Auto) 0.05 (0-0.50) K/uL Baso # (Auto) 0.03 (0-0.2) K/uL Immature Gran # (Auto) 0.01 (0.00-0.02) K/uL PT 10.9 (9.0-12.0) Seconds INR 1.0 (0.9-1.1) APTT 26.8 (21.0-31.0) Seconds PTT Ratio 1.0 POC Sodium (135-144) mmol/L Sodium 136 (136-145) mmol/L POC Potassium (3.3-5.0) mmol/L Potassium 3.6 (3.5-5.1) mmol/L POC Chloride (101-112) mmol/L Chloride 102 (98-107) mmol/L Carbon Dioxide 27 (21-32) mmol/L POC Total CO2 (24-31) mmol/L Anion Gap 7 (3-11) POC Anion Gap (16-25) mmol/L POC BUN (7-18) mg/dl BUN 12 (6-23) mg/dl Creatinine 0.86 (0.6-1.2) mg/dl POC Creatinine (0.6-1.3) mg/dl Est Cr Clr Drug Dosing 89.1 ml/min Est GFR ( Amer) 97.9 ml/min Est GFR (Non-Af Amer) 84.5 ml/min BUN/Creatinine Ratio 14.0 (10-20) Glucose 88 (70-99(Fasting)) mg/dl POC Glucose (other) (70-99) mg/dl Calcium 8.8 (8.5-10.1) mg/dl POC Ioniz Calcium Odalys (1.12-1.32) mmol/l Total Bilirubin 0.6 (0.2-1.0) mg/dl AST 13 (13-39) U/L ALT 12 (7-52) U/L Alkaline Phosphatase 63 (34-104) U/L Total Protein 6.7 (6.0-8.3) gm/dl Albumin 4.0 (3.4-5.0) gm/dl Globulin 2.7 (2.5-4.0) gm/dl Albumin/Globulin Ratio 1.5 (0.9-2) Urine Color Urine Appearance (Clear) Urine pH (4.5-7.5) Ur Specific [place] (1.000-1.030) Urine Protein (Negative) Urine Glucose (UA) (Negative) Urine Ketones (Negative) Urine Blood (Negative) Urine Nitrite (Negative) Urine Bilirubin (Negative) Urine Urobilinogen (Negative) Ur Leukocyte Esterase (Negative) SARS-CoV-2, RNA, NAAT (NEGATIVE) Blood Type Blood Type Recheck Antibody Screen Crossmatch 09/24/21 09/24/21 09/24/21 Range/Units 13:44 13:50 13:52 WBC (4.8-10.8) K/ul RBC (3.93-5.22) M/uL Hgb (12.0-16.0) g/dl POC Hgb 10.9 L (12.0-16.0) g/dl Hct (34.1-44.9) % POC Hct 32 L (37-47) % MCV (80.0-100.0) fL MCH (25.0-34.0) pg MCHC (32.0-36.0) g/dL RDW Std Deviation (36.4-46.3) fL RDW Coeff of Lissette (11.5-14.5) % Plt Count (130-400) K/uL MPV (9.4-12.3) fL Immature Gran % (Auto) % Neut % (Auto) % Lymph % (Auto) % [place] % (Auto) % Eos % (Auto) % Baso % (Auto) % Neut # (Auto) (1.4-6.5) K/uL Lymph # (Auto) (1.2-3.4) K/uL [place] # (Auto) (0.24-0.82) K/uL Eos # (Auto) (0-0.50) K/uL Baso # (Auto) (0-0.2) K/uL Immature Gran # (Auto) (0.00-0.02) K/uL PT (9.0-12.0) Seconds INR (0.9-1.1) APTT (21.0-31.0) Seconds PTT Ratio POC Sodium 137 (135-144) mmol/L Sodium (136-145) mmol/L POC Potassium 3.6 (3.3-5.0) mmol/L Potassium (3.5-5.1) mmol/L POC Chloride 100 L (101-112) mmol/L Chloride (98-107) mmol/L Carbon Dioxide (21-32) mmol/L POC Total CO2 28 (24-31) mmol/L Anion Gap (3-11) POC Anion Gap 14.0 L (16-25) mmol/L POC BUN 10 (7-18) mg/dl BUN (6-23) mg/dl Creatinine (0.6-1.2) mg/dl POC Creatinine 0.9 (0.6-1.3) mg/dl Est Cr Clr Drug Dosing ml/min Est GFR ( Amer) ml/min Est GFR (Non-Af Amer) ml/min BUN/Creatinine Ratio (10-20) Glucose (70-99(Fasting)) mg/dl POC Glucose (other) 92 (70-99) mg/dl Calcium (8.5-10.1) mg/dl POC Ioniz Calcium Odalys 1.15 (1.12-1.32) mmol/l Total Bilirubin (0.2-1.0) mg/dl AST (13-39) U/L ALT (7-52) U/L Alkaline Phosphatase (34-104) U/L Total Protein (6.0-8.3) gm/dl Albumin (3.4-5.0) gm/dl Globulin (2.5-4.0) gm/dl Albumin/Globulin Ratio (0.9-2) Urine Color Urine Appearance (Clear) Urine pH (4.5-7.5) Ur Specific [place] (1.000-1.030) Urine Protein (Negative) Urine Glucose (UA) (Negative) Urine Ketones (Negative) Urine Blood (Negative) Urine Nitrite (Negative) Urine Bilirubin (Negative) Urine Urobilinogen (Negative) Ur Leukocyte Esterase (Negative) SARS-CoV-2, RNA, NAAT POSITIVE A* (NEGATIVE) Blood Type O Positive Blood Type Recheck Antibody Screen NEGATIVE Crossmatch See Detail 09/24/21 09/24/21 09/24/21 Range/Units 14:20 14:42 14:42 WBC (4.8-10.8) K/ul RBC (3.93-5.22) M/uL Hgb 8.4 L D (12.0-16.0) g/dl POC Hgb (12.0-16.0) g/dl Hct 25.3 L (34.1-44.9) % POC Hct (37-47) % MCV (80.0-100.0) fL MCH (25.0-34.0) pg MCHC (32.0-36.0) g/dL RDW Std Deviation (36.4-46.3) fL RDW Coeff of Lissette (11.5-14.5) % Plt Count (130-400) K/uL MPV (9.4-12.3) fL Immature Gran % (Auto) % Neut % (Auto) % Lymph % (Auto) % [place] % (Auto) % Eos % (Auto) % Baso % (Auto) % Neut # (Auto) (1.4-6.5) K/uL Lymph # (Auto) (1.2-3.4) K/uL [place] # (Auto) (0.24-0.82) K/uL Eos # (Auto) (0-0.50) K/uL Baso # (Auto) (0-0.2) K/uL Immature Gran # (Auto) (0.00-0.02) K/uL PT (9.0-12.0) Seconds INR (0.9-1.1) APTT (21.0-31.0) Seconds PTT Ratio POC Sodium (135-144) mmol/L Sodium (136-145) mmol/L POC Potassium (3.3-5.0) mmol/L Potassium (3.5-5.1) mmol/L POC Chloride (101-112) mmol/L Chloride (98-107) mmol/L Carbon Dioxide (21-32) mmol/L POC Total CO2 (24-31) mmol/L Anion Gap (3-11) POC Anion Gap (16-25) mmol/L POC BUN (7-18) mg/dl BUN (6-23) mg/dl Creatinine (0.6-1.2) mg/dl POC Creatinine (0.6-1.3) mg/dl Est Cr Clr Drug Dosing ml/min Est GFR ( Amer) ml/min Est GFR (Non-Af Amer) ml/min BUN/Creatinine Ratio (10-20) Glucose (70-99(Fasting)) mg/dl POC Glucose (other) (70-99) mg/dl Calcium (8.5-10.1) mg/dl POC Ioniz Calcium Odalys (1.12-1.32) mmol/l Total Bilirubin (0.2-1.0) mg/dl AST (13-39) U/L ALT (7-52) U/L Alkaline Phosphatase (34-104) U/L Total Protein (6.0-8.3) gm/dl Albumin (3.4-5.0) gm/dl Globulin (2.5-4.0) gm/dl Albumin/Globulin Ratio (0.9-2) Urine Color Yellow Urine Appearance Clear (Clear) Urine pH 5.5 (4.5-7.5) Ur Specific [place] 1.019 (1.000-1.030) Urine Protein Negative (Negative) Urine Glucose (UA) Negative (Negative) Urine Ketones Trace H (Negative) Urine Blood Negative (Negative) Urine Nitrite Negative (Negative) Urine Bilirubin Negative (Negative) Urine Urobilinogen Negative (Negative) Ur Leukocyte Esterase Negative (Negative) SARS-CoV-2, RNA, NAAT (NEGATIVE) Blood Type Blood Type Recheck O Positive Antibody Screen Crossmatch Administered Medications Discontinued Medications Fentanyl Citrate (Fentanyl Citrate 100 Mcg/2 Ml Vial) Confirm Administered Dose 100 mcg .ROUTE .Optimus-MED ONE Stop: 09/24/21 14:15 Last Admin: 09/24/21 14:26 Dose: Not Given Documented By: NOE Fentanyl Citrate (Fentanyl Citrate 100 Mcg/2 Ml Vial) 100 mcg IV NOW STA Stop: 09/24/21 14:17 Last Admin: 09/24/21 14:26 Dose: 25 mcg Documented By: NOE Sodium Chloride (Nss 1000ml) 1,000 mls @ 999 mls/hr IV .Q1H1M ONE Stop: 09/24/21 14:41 Last Infusion: 09/24/21 13:59 Dose: 0 mls/hr Documented By: Admin: 09/24/21 13:45 Dose: 999 mls/hr Documented By: NOE Sodium Chloride (Nss 1000ml) 1,000 mls @ 999 mls/hr IV .Q1H1M ONE Stop: 09/24/21 15:16 Last Admin: 09/24/21 14:20 Dose: 999 mls/hr Documented By: NOE Ondansetron HCl (Ondansetron Inj 2 Mg/Ml 2 Ml Vial) 4 mg IV NOW STA Stop: 09/24/21 14:17 Last Admin: 09/24/21 14:46 Dose: 4 mg Documented By: NOE Discharge Plan Visit Data Chief Complaint: Vaginal Bleeding Stated Complaint: Vaginal bleeding ED Provider: Randy Serrano Discharge Problem: Vaginal bleeding, Shock, ABLA (acute blood loss anemia) Patient Disposition: Being Evaluated by Surgeon Discharge Instructions Interventions: ED Discharge Assessment Last Done: 09/24/21 15:12 Forms Stand Alone Forms: Replaced By [facility] Prescriptions Prescriptions: No Action tramadol 50 mg tablet 50 mg PO Q6H PRN (Reason: migraines) nitrofurantoin monohyd/m-cryst [Macrobid] 100 mg capsule 100 mg PO Q12H PRN (Reason: UTI symptoms) 5 Days Qty: 10 2RF Rx Instructions: must administer with a meal/food phenazopyridine [Pyridium] 200 mg tablet 200 mg PO TID PRN (Reason: pain) Qty: 10 0RF carisoprodol [Soma] 350 mg tablet 350 mg PO TID PRN (Reason: muscle pain) Amitiza 24 mcg capsule 24 mcg PO BID bupropion HCl 150 mg tablet extended release 24 hr 300 mg PO QAM ketorolac 10 mg Tablet 10 mg PO QAM PRN (Reason: Pain) Nurtec ODT 75 mg Tablet,Disintegrating 75 mg PO UD PRN (Reason: MIGRAINES) [id number]-[id number] 50-300-40 mg capsule 1 cap PO Q4H PRN (Reason: Migraine Headache) Referrals Referrals: Geovani Sebastian MD [Primary Care Provider] -
[2021-09-24 13:49] LABS: Basophils # (auto) 0.03 K/uL (0-0.2); Basophils % (auto) 0.3 %; Eosinophils # (auto) 0.05 K/uL (0-0.50); Eosinophils % (auto) 0.6 %; Hematocrit (blood only) 33.7 % (34.1-44.9); Hemoglobin 11.4 g/dl (12.0-16.0); Immature Granulocytes # (auto) 0.01 K/uL (0.00-0.02); Immature Granulocytes % (auto) 0.1 %; Lymphocytes # (auto) 1.75 K/uL (1.2-3.4); Lymphocytes % (auto) 19.9 %; Mean Corpuscular Hemoglobin 29.5 pg (25.0-34.0); Mean Corpuscular Hgb Conc 33.8 g/dL (32.0-36.0); Mean Corpuscular Volume 87.1 fL (80.0-100.0); Mean Platelet Volume 11.4 fL (9.4-12.3); Monocytes # (auto) 0.51 K/uL (0.24-0.82); Monocytes % (auto) 5.8 %; Neutrophils # (auto) 6.46 K/uL (1.4-6.5); Neutrophils % (auto) 73.3 %; Platelet Count 222 K/uL (130-400); RDW Coefficient of Variation 12.5 % (11.5-14.5); RDW Standard Deviation 39.7 fL (36.4-46.3); Red Blood Count 3.87 M/uL (3.93-5.22); White Blood Count 8.81 K/ul (4.8-10.8)
[2021-09-24 13:56] LABS: iSTAT Creatinine 0.9 mg/dl (0.6-1.3); iSTAT Hemoglobin 10.9 g/dl (12.0-16.0); iSTAT Ionized Calcium 1.15 mmol/l (1.12-1.32); iSTAT Potassium 3.6 mmol/L (3.3-5.0)
[2021-09-24 14:01] LABS: Partial Thromboplastin Time 26.8 Seconds (21.0-31.0); Prothrombin Time 10.9 Seconds (9.0-12.0)
[2021-09-24 14:11] LABS: Albumin Globulin Ratio 1.5 (0.9-2); Bilirubin,Total 0.6 mg/dl (0.2-1.0); Calcium 8.8 mg/dl (8.5-10.1); Creatinine Clr Calc Pharmacy 89.1 ml/min; Est GFR (African American) 97.9 ml/min; Est GFR (Non-African American) 84.5 ml/min; Globulin 2.7 gm/dl (2.5-4.0); Potassium 3.6 mmol/L (3.5-5.1); Total Protein 6.7 gm/dl (6.0-8.3)
[2021-09-24] MEDS ORDERED: fentaNYL citrate 100 MCG/2 ML VIAL ONE ×3 (14:14→15:18)
[2021-09-24] MEDS ORDERED: ONDANSETRON INJ 2 MG/ML 2 ML VIAL IV STA (14:16)
[2021-09-24] MEDS ORDERED: fentaNYL citrate 100 MCG/2 ML VIAL IV STA (14:16)
[2021-09-24] MEDS ORDERED: SODIUM CHLORIDE 0.9% 250 ML IV PRN ×2 (14:25→14:57)
[2021-09-24 14:42] LABS: Appearance Urine Clear (Clear); Bilirubin Urine Negative (Negative); Blood Urine Negative (Negative); Color Urine Yellow; Glucose Urine UA Negative (Negative); Ketones Urine Trace (Negative); Leukocyte Esterase Urine Negative (Negative); Nitrite Urine Negative (Negative); Protein Urine Negative (Negative); Specific Gravity Urine 1.019 (1.000-1.030); Urobilinogen Urine Negative (Negative); pH Urine 5.5 (4.5-7.5)
[2021-09-24] MEDS ORDERED: ONDANSETRON INJ 2 MG/ML 2 ML VIAL IV PRN ×2 (14:52→17:01)
[2021-09-24] MEDS ORDERED: fentaNYL citrate 100 MCG/2 ML VIAL IV PRN (14:52)
[2021-09-24] MEDS ORDERED: HYDROmorphone INJ 1 MG/ML SYRINGE IV PRN ×2 (14:52→20:22)
[2021-09-24] MEDS ORDERED: ATROPINE SULFATE 0.1 MG/ML 10ML SYR IV PRN (14:52)
[2021-09-24] MEDS ORDERED: ePHEDrine sulfate 50 MG/ML AMP IV PRN (14:52)
[2021-09-24 14:53] LABS: Hematocrit (blood only) 25.3 % (34.1-44.9); Hemoglobin 8.4 g/dl (12.0-16.0)
[2021-09-24] MEDS ORDERED: BUPIVACAINE 0.5 % 5 MG/1 ML MPF 30ML VIAL ONE (14:55)
[2021-09-24] MEDS ORDERED: EPINEPHrine INJ 1 MG/ML AMP ONE (14:55)
[2021-09-24] MEDS ORDERED: NOREPINEPHRINE/D5W 4 MG/250 ML IV ONE (15:02)
[2021-09-24] MEDS ORDERED: ceFAZolin 2000MG 2,000 MG/15 ML SYR IV ONE (15:03)
--- NOTE | 2021-09-24 15:14 | Anesthesiology Consultation ---
Date of Service September 24, 2021 Assessment & Plan (1) Encounter for pre-operative examination: Chart Review Chart Review: Acceptable Risk for Surgery Consults Requested none ASA [id number] Proposed Anesthesia Anesthesia Type: General Risk / Benefits Reviewed With: PT / POA / Parent / Guardian, Accepts Plan and Informed Consent Obtained History Surgery Operation Date: 09/24/21 15:30 Proposed Procedures p Exploratory Laparotomy - Rai Wen MD Height/Weight Height: 5 ft 4 in Weight: 80.2 kg Allergies Allergy/AdvReac Type Severity Reaction Status Date / Time efavirenz Allergy Intermediate Rash Verified 08/26/21 11:35 lamivudine Allergy Intermediate Rash Verified 08/26/21 11:35 Penicillins Allergy Intermediate Rash Verified 08/26/21 11:35 sulfamethoxazole Allergy Intermediate Globus Verified 08/26/21 11:35 [From Bactrim] sensation trimethoprim [From Bactrim] Allergy Intermediate Globus Verified 08/26/21 11:35 sensation zidovudine Allergy Intermediate Rash Verified 08/26/21 11:35 Medications Home Medications Medication Instructions Recorded Confirmed Last Taken bupropion HCl 150 mg 24 hr tablet, 300 mg PO QAM 03/21/18 09/09/21 09/08/21 07:00 extended release carisoprodol 350 mg tablet (Soma) 350 mg PO TID PRN muscle pain 01/22/19 09/09/21 09/06/21 lubiprostone 24 mcg capsule 24 mcg PO BID 07/24/19 09/09/21 09/08/21 18:30 (Amitiza) ketorolac 10 mg tablet 10 mg PO QAM PRN Pain 04/02/20 09/09/21 04/08/20 15:00 rimegepant 75 mg disintegrating 75 mg PO UD PRN MIGRAINES 04/02/20 09/09/21 09/08/21 20:30 tablet (Nurtec ODT) tramadol 50 mg tablet 50 mg PO Q6H PRN migraines 04/07/21 09/09/21 09/08/21 17:00 tpuavyocdc-twnyxavddvllf-bzzarxyg 1 cap PO Q4H PRN Migraine Headache 05/07/21 09/09/21 09/06/21 50 mg-300 mg-40 mg capsule nitrofurantoin 100 mg PO Q12H PRN UTI symptoms 5 07/15/21 09/09/21 08/05/21 monohydrate/macrocrystals 100 mg days #10 caps capsule (Macrobid) phenazopyridine 200 mg tablet 200 mg PO TID PRN pain #10 tabs 09/20/21 Unknown (Pyridium) Active Medications Generic Name Dose Route Start Last Admin Trade Name Freq PRN Reason Stop Dose Admin Sodium Chloride 1,000 mls @ 999 mls/hr 09/24/21 14:16 09/24/21 14:20 Nss 1000ml IV 09/24/21 15:16 999 mls/hr .Q1H1M ONE Administration NPO Date Last Intake of Fluids: 09/24/21 Time Last Intake of Fluids: 13:00 Last Intake of Fluids Comment: sips of water Date Last Intake of Solids: 09/24/21 Time Last Intake of Solids: 08:00 Last Intake of Solids Comment: lite breakfast Past Medical History Medical History Chronic constipation Depression Difficult intubation Laparoscopic Cholecystectomy with Cholangiogram Laparoscopic Appendectomy Dr. Maldonado 04/22/2020. Grade 3 view, Pantoja 2, glidescope 4, ETT 7.5. 3 attempts. Fatty liver Possible (per ultrasound) History of COVID-19 02/2021, pcr test, not hospitalzied, muscle aches, "respiratory sympt oms">resolved. Hx of fall 2021, fractured 1 rib "now healed" Low back pain radiating to lower extremity Migraines Myofascial pain Exercise / Class Metabolic Activity II 4-5 Yardwork/Stairs/Walk up hill Past Family History Family History Father Diabetes Mother Diabetes Cancer Uterine Cancer Hypertension Sister Diabetes Hypertension Grandmother (Maternal) Cancer Uterine cancer Brother Diabetes Other No significant family history Past Surgical History Surgical History History of arthroscopy of right shoulder Right shoulder arthroscopy, RCR: 09/25/19: [place]MA#4 [place] [facility] [place] of [place]oscopy History of dilation and curettage D&E History of laparoscopic appendectomy (04/22/20) Laparoscopic Cholecystectomy with Cholangiogram Laparoscopic Appendectomy Dr. Maldonado 04/22/2020. Grade 3 view, Pantoja 2, glidescope 4, ETT 7.5. 3 attempts. Hx of colonoscopy Hx of endoscopy Hx of tubal ligation Past Anesthesia History No Hx of Anesthesia Complications and No Family Hx of Anesthesia Complications History of PONV No Hx of PONV and No Hx of Motion Sickness Social History Smoking Status: Never smoker Hx Alcohol Use: No alcohol intake frequency: holidays/special occasions only Hx Substance Use: No substance use type: does not use Physical Exam Vital Signs Last Vital Signs Temp 97.3 F L 09/24/21 13:39 Pulse 88 09/24/21 14:53 Resp 16 09/24/21 14:53 BP 93/78 L 09/24/21 14:53 Pulse Ox 95 09/24/21 14:53 O2 Del Method 09/24/21 14:53 ENMT Mouth: no dentition abnormality Thyromental Distance: > or= 3.5 Finger Breadths Mallampati Class: II Neck normal visual inspection Respiratory normal respiratory effort Auscultation: lungs clear to auscultation bilaterally Cardiovascular Rate/Rhythm: regular rate and regular rhythm Testing Laboratory Results 09/24/21 14:42 09/24/21 13:43 PT 10.9 Seconds (9.0-12.0) 09/24/21 13:43 INR 1.0 (0.9-1.1) 09/24/21 13:43 APTT 26.8 Seconds (21.0-31.0) 09/24/21 13:43 Urine Color Yellow 09/24/21 14:20 Urine Appearance Clear (Clear) 09/24/21 14:20 Urine pH 5.5 (4.5-7.5) 09/24/21 14:20 Ur Specific [place] 1.019 (1.000-1.030) 09/24/21 14:20 Urine Protein Negative (Negative) 09/24/21 14:20 Urine Glucose (UA) Negative (Negative) 09/24/21 14:20 Urine Ketones Trace (Negative) H 09/24/21 14:20 Urine Nitrite Negative (Negative) 09/24/21 14:20 Ur Leukocyte Esterase Negative (Negative) 09/24/21 14:20 Blood Type O Positive 09/24/21 13:52 09/24/21 13:44 POC Glucose (other) 92
[2021-09-24] MEDS ORDERED: MIDAZOLAM HCL 1 MG/ML 2ML VIAL ONE (15:18)
[2021-09-24] MEDS ORDERED: FLOSEAL HEMOSTATIC MATRIX 10ML TOP ONE (16:30)
[2021-09-24] MEDS ORDERED: MEPERIDINE HCL 50 MG/ML CARP IV PRN (17:01)
[2021-09-24] MEDS ORDERED: PROMETHAZINE HCL 25 MG in SODIUM CHLORIDE 0.9% 50 ML IV PRN ×2 (17:01→20:25)
[2021-09-24] MEDS ORDERED: SENNA 8.6 MG TAB PO PRN (17:01)
--- NOTE | 2021-09-24 17:01 | History & Physical Report ---
Date of Service September 24, 2021 Assessment & Plan (1) Vaginal bleeding: (2) Shock: (3) S/P laparoscopic hysterectomy: (4) Episode of heavy vaginal bleeding: Plan: Patient is a 41-year-old female status post total laparoscopic hysterectomy for abnormal uterine bleeding on September 09, presenting with heavy vaginal bleeding since 1 PM. Blood pressure dropped, H&H dropped from 11-8 within an hour or so in the ER, Active vaginal bleeding despite vaginal packing, Plan to go to the OR for exploratory laparoscopy, possible laparotomy, See HPI History of Present Illness Primary Care Provider: Geovani Sebastian MD This is a late entry from admission due to the patient emergent condition. Patient is a 41-year-old female who had total laparoscopic hysterectomy for abno rmal uterine bleeding, failed ablation on September 09. She was doing well until this afternoon when she was shopping at [employer] started to have severe cramps and passing clots at around 1 PM. When she came to the ER she was passing large amount of clots, soaking large pads in few minutes, collected 300 mL of clots in a cup. When I went to the ER her blood pressure was within normal limits and her H&H was pending. I did a speculum exam and emptied about 200 mL of clots. I was able to see the vaginal cuff which was intact but it was bleeding from inside of the cuff, suggesting bleeding, coming from pelvis. I did a bedside ultrasound and saw the bladder to be normal and there was a 5 x 6 cm hypoechogenic area suggesting blood or fluid collection in the pelvis/cul-de-sac. I packed her vagina between the long management packs and within a minute or 2 it got soaked with bright red blood dripping onto her pads. I removed the packs and she was still bleeding and passing clots. Decision was made to come to the OR for further evaluation and stop bleeding. Blood pressure dropped while we are packing. She was given IV fluid bolus and type and cross 4 units of blood. She then signed an informed consent for exam anesthesia, laparoscopy, control of bleeding, possible laparotomy. She understood the risks and benefits and all questions were answered. She denied recent trauma nor sexual intercourse. She denies any bleeding disorders. She is allergic to penicillin but she has received cephalosporin in the past without any reaction. Allergies Allergy/AdvReac Type Severity Reaction Status Date / Time efavirenz Allergy Intermediate Rash Verified 08/26/21 11:35 lamivudine Allergy Intermediate Rash Verified 08/26/21 11:35 Penicillins Allergy Intermediate Rash Verified 08/26/21 11:35 sulfamethoxazole Allergy Intermediate Globus Verified 08/26/21 11:35 [From Bactrim] sensation trimethoprim [From Bactrim] Allergy Intermediate Globus Verified 08/26/21 11:35 sensation zidovudine Allergy Intermediate Rash Verified 08/26/21 11:35 Home Medications Medication Instructions Recorded Confirmed Type bupropion HCl 150 mg 24 hr tablet, 300 mg PO QAM 03/21/18 09/09/21 History extended release carisoprodol 350 mg tablet (Soma) 350 mg PO TID PRN muscle pain 01/22/19 09/09/21 History lubiprostone 24 mcg capsule 24 mcg PO BID 07/24/19 09/09/21 History (Amitiza) ketorolac 10 mg tablet 10 mg PO QAM PRN Pain 04/02/20 09/09/21 History rimegepant 75 mg disintegrating 75 mg PO UD PRN MIGRAINES 04/02/20 09/09/21 History tablet (Nurtec ODT) tramadol 50 mg tablet 50 mg PO Q6H PRN migraines 04/07/21 09/09/21 History ainpzvdilp-gnpdqompiatpq-bepbbird 1 cap PO Q4H PRN Migraine Headache 05/07/21 09/09/21 History 50 mg-300 mg-40 mg capsule nitrofurantoin 100 mg PO Q12H PRN UTI symptoms 5 07/15/21 09/09/21 Rx monohydrate/macrocrystals 100 mg days #10 caps capsule (Macrobid) phenazopyridine 200 mg tablet 200 mg PO TID PRN pain #10 tabs 09/20/21 Rx (Pyridium) Patient History Medical History Chronic constipation Depression Difficult intubation Laparoscopic Cholecystectomy with Cholangiogram Laparoscopic Appendectomy Dr. Maldonado 04/22/2020. Grade 3 view, Pantoja 2, glidescope 4, ETT 7.5. 3 attempts. Fatty liver Possible (per ultrasound) History of COVID-19 02/2021, pcr test, not hospitalzied, muscle aches, "respiratory symptoms">resolved. Hx of fall 2021, fractured 1 rib "now healed" Low back pain radiating to lower extremity Migraines Myofascial pain Surgical History History of arthroscopy of right shoulder Right shoulder arthroscopy, RCR: 09/25/19: LMA#4 + [place] [facility] [place] [facility] [place] History of colonoscopy History of dilation and curettage D&E History of laparoscopic appendectomy (04/22/20) Laparoscopic Cholecystectomy with Cholangiogram Laparoscopic Appendectomy Dr. Maldonado 04/22/2020. Grade 3 view, Pantoja 2, glidescope 4, ETT 7.5. 3 attempts. 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 Beliefs That Will Affect Care: None marital status: Single Current Living Situation: Family and Significant Other Current Living Situation Comment: LIVES WITH BOYFRIEND , DAUGHTER AND BOYFRIEND'S SISTER Feels Safe at Home: Yes Sunscreen Use: Yes Assistive Devices: Contacts Review of Systems as per Subjective / HPI Physical Exam Constitutional: WD/WN, vitals as above well developed, + acute distress and + lethargic Gastrointestinal (Abdomen): normal bowel sounds, soft, nontender, no hepatosplenomegaly Genitourinary: See HPI Results & Data ([facility]) Vital Signs (Past 12 Hours) Vital Signs Temp Pulse Pulse Resp BP BP Pulse Ox 09/24/21 14:59 46 L 16 53/28 L 95 09/24/21 14:52 86 18 93/78 L 98 09/24/21 15:20 81 20 106/56 L 97 09/24/21 15:16 68 18 99/65 L 100 09/24/21 14:53 88 16 93/78 L 95 09/24/21 14:33 16 118/68 97 09/24/21 14:21 64 18 100/51 L 100 09/24/21 14:00 86 18 128/72 100 09/24/21 13:41 82 22 98 09/24/21 13:39 36.3 C L 127/83 98 09/24/21 13:50 77 17 129/70 100 O2 Del Method O2 Flow Rate 09/24/21 14:59 Nasal Cannula 2 09/24/21 14:52 Room Air 09/24/21 15:20 Nasal Cannula 2 09/24/21 15:16 09/24/21 14:53 Room Air 09/24/21 14:33 Room Air 09/24/21 14:21 Room Air 09/24/21 14:00 Room Air 09/24/21 13:41 Room Air 09/24/21 13:39 Room Air 09/24/21 13:50 Room Air Diagnostic Findings Lab Results 09/24/21 09/24/21 09/24/21 Range/Units 13:43 13:43 13:43 WBC 8.81 (4.8-10.8) K/ul RBC 3.87 L (3.93-5.22) M/uL Hgb 11.4 L (12.0-16.0) g/dl POC Hgb (12.0-16.0) g/dl Hct 33.7 L (34.1-44.9) % POC Hct (37-47) % MCV 87.1 (80.0-100.0) fL MCH 29.5 (25.0-34.0) pg MCHC 33.8 (32.0-36.0) g/dL RDW Std Deviation 39.7 (36.4-46.3) fL RDW Coeff of Lissette 12.5 (11.5-14.5) % Plt Count 222 (130-400) K/uL MPV 11.4 (9.4-12.3) fL Immature Gran % (Auto) 0.1 % Neut % (Auto) 73.3 % Lymph % (Auto) 19.9 % Park % (Auto) 5.8 % Eos % (Auto) 0.6 % Baso % (Auto) 0.3 % Neut # (Auto) 6.46 (1.4-6.5) K/uL Lymph # (Auto) 1.75 (1.2-3.4) K/uL Park # (Auto) 0.51 (0.24-0.82) K/uL Eos # (Auto) 0.05 (0-0.50) K/uL Baso # (Auto) 0.03 (0-0.2) K/uL Immature Gran # (Auto) 0.01 (0.00-0.02) K/uL PT 10.9 (9.0-12.0) Seconds INR 1.0 (0.9-1.1) APTT 26.8 (21.0-31.0) Seconds PTT Ratio 1.0 POC Sodium (135-144) mmol/L Sodium 136 (136-145) mmol/L POC Potassium (3.3-5.0) mmol/L Potassium 3.6 (3.5-5.1) mmol/L POC Chloride (101-112) mmol/L Chloride 102 (98-107) mmol/L Carbon Dioxide 27 (21-32) mmol/L POC Total CO2 (24-31) mmol/L Anion Gap 7 (3-11) POC Anion Gap (16-25) mmol/L POC BUN (7-18) mg/dl BUN 12 (6-23) mg/dl Creatinine 0.86 (0.6-1.2) mg/dl POC Creatinine (0.6-1.3) mg/dl Est Cr Clr Drug Dosing 89.1 ml/min Est GFR ( Amer) 97.9 ml/min Est GFR (Non-Af Amer) 84.5 ml/min BUN/Creatinine Ratio 14.0 (10-20) Glucose 88 (70-99(Fasting)) mg/dl POC Glucose (other) (70-99) mg/dl Calcium 8.8 (8.5-10.1) mg/dl POC Ioniz Calcium Odalys (1.12-1.32) mmol/l Total Bilirubin 0.6 (0.2-1.0) mg/dl AST 13 (13-39) U/L ALT 12 (7-52) U/L Alkaline Phosphatase 63 (34-104) U/L Total Protein 6.7 (6.0-8.3) gm/dl Albumin 4.0 (3.4-5.0) gm/dl Globulin 2.7 (2.5-4.0) gm/dl Albumin/Globulin Ratio 1.5 (0.9-2) Urine Color Urine Appearance (Clear) Urine pH (4.5-7.5) Ur Specific [place] (1.000-1.030) Urine Protein (Negative) Urine Glucose (UA) (Negative) Urine Ketones (Negative) Urine Blood (Negative) Urine Nitrite (Negative) Urine Bilirubin (Negative) Urine Urobilinogen (Negative) Ur Leukocyte Esterase (Negative) SARS-CoV-2, RNA, NAAT (NEGATIVE) Blood Type Blood Type Recheck Antibody Screen Crossmatch 09/24/21 09/24/21 09/24/21 Range/Units 13:44 13:50 13:52 WBC (4.8-10.8) K/ul RBC (3.93-5.22) M/uL Hgb (12.0-16.0) g/dl POC Hgb 10.9 L (12.0-16.0) g/dl Hct (34.1-44.9) % POC Hct 32 L (37-47) % MCV (80.0-100.0) fL MCH (25.0-34.0) pg MCHC (32.0-36.0) g/dL RDW Std Deviation (36.4-46.3) fL RDW Coeff of Lissette (11.5-14.5) % Plt Count (130-400) K/uL MPV (9.4-12.3) fL Immature Gran % (Auto) % Neut % (Auto) % Lymph % (Auto) % Park % (Auto) % Eos % (Auto) % Baso % (Auto) % Neut # (Auto) (1.4-6.5) K/uL Lymph # (Auto) (1.2-3.4) K/uL Park # (Auto) (0.24-0.82) K/uL Eos # (Auto) (0-0.50) K/uL Baso # (Auto) (0-0.2) K/uL Immature Gran # (Auto) (0.00-0.02) K/uL PT (9.0-12.0) Seconds INR (0.9-1.1) APTT (21.0-31.0) Seconds PTT Ratio POC Sodium 137 (135-144) mmol/L Sodium (136-145) mmol/L POC Potassium 3.6 (3.3-5.0) mmol/L Potassium (3.5-5.1) mmol/L POC Chloride 100 L (101-112) mmol/L Chloride (98-107) mmol/L Carbon Dioxide (21-32) mmol/L POC Total CO2 28 (24-31) mmol/L Anion Gap (3-11) POC Anion Gap 14.0 L (16-25) mmol/L POC BUN 10 (7-18) mg/dl BUN (6-23) mg/dl Creatinine (0.6-1.2) mg/dl POC Creatinine 0.9 (0.6-1.3) mg/dl Est Cr Clr Drug Dosing ml/min Est GFR ( Amer) ml/min Est GFR (Non-Af Amer) ml/min BUN/Creatinine Ratio (10-20) Glucose (70-99(Fasting)) mg/dl POC Glucose (other) 92 (70-99) mg/dl Calcium (8.5-10.1) mg/dl POC Ioniz Calcium Odalys 1.15 (1.12-1.32) mmol/l Total Bilirubin (0.2-1.0) mg/dl AST (13-39) U/L ALT (7-52) U/L Alkaline Phosphatase (34-104) U/L Total Protein (6.0-8.3) gm/dl Albumin (3.4-5.0) gm/dl Globulin (2.5-4.0) gm/dl Albumin/Globulin Ratio (0.9-2) Urine Color Urine Appearance (Clear) Urine pH (4.5-7.5) Ur Specific [place] (1.000-1.030) Urine Protein (Negative) Urine Glucose (UA) (Negative) Urine Ketones (Negative) Urine Blood (Negative) Urine Nitrite (Negative) Urine Bilirubin (Negative) Urine Urobilinogen (Negative) Ur Leukocyte Esterase (Negative) SARS-CoV-2, RNA, NAAT POSITIVE A* (NEGATIVE) Blood Type O Positive Blood Type Recheck Antibody Screen NEGATIVE Crossmatch See Detail 09/24/21 09/24/21 09/24/21 Range/Units 14:20 14:42 14:42 WBC (4.8-10.8) K/ul RBC (3.93-5.22) M/uL Hgb 8.4 L D (12.0-16.0) g/dl POC Hgb (12.0-16.0) g/dl Hct 25.3 L (34.1-44.9) % POC Hct (37-47) % MCV (80.0-100.0) fL MCH (25.0-34.0) pg MCHC (32.0-36.0) g/dL RDW Std Deviation (36.4-46.3) fL RDW Coeff of Lissette (11.5-14.5) % Plt Count (130-400) K/uL MPV (9.4-12.3) fL Immature Gran % (Auto) % Neut % (Auto) % Lymph % (Auto) % Park % (Auto) % Eos % (Auto) % Baso % (Auto) % Neut # (Auto) (1.4-6.5) K/uL Lymph # (Auto) (1.2-3.4) K/uL Park # (Auto) (0.24-0.82) K/uL Eos # (Auto) (0-0.50) K/uL Baso # (Auto) (0-0.2) K/uL Immature Gran # (Auto) (0.00-0.02) K/uL PT (9.0-12.0) Seconds INR (0.9-1.1) APTT (21.0-31.0) Seconds PTT Ratio POC Sodium (135-144) mmol/L Sodium (136-145) mmol/L POC Potassium (3.3-5.0) mmol/L Potassium (3.5-5.1) mmol/L POC Chloride (101-112) mmol/L Chloride (98-107) mmol/L Carbon Dioxide (21-32) mmol/L POC Total CO2 (24-31) mmol/L Anion Gap (3-11) POC Anion Gap (16-25) mmol/L POC BUN (7-18) mg/dl BUN (6-23) mg/dl Creatinine (0.6-1.2) mg/dl POC Creatinine (0.6-1.3) mg/dl Est Cr Clr Drug Dosing ml/min Est GFR ( Amer) ml/min Est GFR (Non-Af Amer) ml/min BUN/Creatinine Ratio (10-20) Glucose (70-99(Fasting)) mg/dl POC Glucose (other) (70-99) mg/dl Calcium (8.5-10.1) mg/dl POC Ioniz Calcium Odalys (1.12-1.32) mmol/l Total Bilirubin (0.2-1.0) mg/dl AST (13-39) U/L ALT (7-52) U/L Alkaline Phosphatase (34-104) U/L Total Protein (6.0-8.3) gm/dl Albumin (3.4-5.0) gm/dl Globulin (2.5-4.0) gm/dl Albumin/Globulin Ratio (0.9-2) Urine Color Yellow Urine Appearance Clear (Clear) Urine pH 5.5 (4.5-7.5) Ur Specific [place] 1.019 (1.000-1.030) Urine Protein Negative (Negative) Urine Glucose (UA) Negative (Negative) Urine Ketones Trace H (Negative) Urine Blood Negative (Negative) Urine Nitrite Negative (Negative) Urine Bilirubin Negative (Negative) Urine Urobilinogen Negative (Negative) Ur Leukocyte Esterase Negative (Negative) SARS-CoV-2, RNA, NAAT (NEGATIVE) Blood Type Blood Type Recheck O Positive Antibody Screen Crossmatch
--- NOTE | 2021-09-24 17:19 | Anesthesiology Progress Note ---
Date of Service September 24, 2021 Anesthesia Post Procedure Vital Signs Vital Signs: Temp Pulse Pulse Resp BP BP Pulse Ox 09/24/21 14:59 46 L 16 53/28 L 95 09/24/21 14:52 86 18 93/78 L 98 09/24/21 15:20 81 20 106/56 L 97 09/24/21 15:16 68 18 99/65 L 100 09/24/21 14:53 88 16 93/78 L 95 09/24/21 14:33 16 118/68 97 09/24/21 14:21 64 18 100/51 L 100 09/24/21 14:00 86 18 128/72 100 09/24/21 13:41 82 22 98 09/24/21 13:39 97.3 F L 127/83 98 09/24/21 13:50 77 17 129/70 100 O2 Del Method O2 Flow Rate 09/24/21 14:59 Nasal Cannula 2 09/24/21 14:52 Room Air 09/24/21 15:20 Nasal Cannula 2 09/24/21 15:16 09/24/21 14:53 Room Air 09/24/21 14:33 Room Air 09/24/21 14:21 Room Air 09/24/21 14:00 Room Air 09/24/21 13:41 Room Air 09/24/21 13:39 Room Air 09/24/21 13:50 Room Air Pain Intensity Lower Abdomen: Pain Intensity: 8 Transfer of Care Handoff Completed per policy Notes Mental Status: alert / awake / arousable and participated in evaluation Patient Amnestic to Procedure: Yes Nausea / Vomiting: adequately controlled Pain: adequately controlled Airway Patency, RR, SpO2: stable & adequate BP & HR: stable & adequate Hydration State: stable & adequate Anesthetic Complications: no major complications apparent and Pt Satisfied with anesthetic care
[2021-09-24 17:55] LABS: Hematocrit (blood only) 34.4 % (34.1-44.9)
--- NOTE | 2021-09-24 17:56 | Post Operative Brief Note ---
Immediate Post Op Note v1 Date of Surgery September 24, 2021 Pre & Post Diagnosis Operation Date: 09/24/21 15:30 Pre-Op Diagnosis: Heavy Vaginal bleeding, s/p TLH on 09/09 Post-Op Diagnosis: Heavy Vaginal bleeding I identified the patient and participated in the time-out.: Yes Procedure Operation Date: 09/24/21 15:30 Actual Procedures p Exploratory Laparoscopy; Applicaton of Hemostatic Agent; Vaginal Exam under Anesthesia(Not Applicable), Vaginal packing - Rai Wen MD Surgeon Rai Wen MD Merchandise Team Manager OR nurse Estimated Blood Loss 500 Findings Consistent with Post-Op Diagnosis Drains Franco Catheter (Patient arrived to OR with franco intact) Anesthesia Type General Complications none
--- NOTE | 2021-09-24 18:15 | Obstetrical Progress Note ---
Date of Service September 24, 2021 Assessment & Plan Admission and Anticipated Discharge Date Admission Date: September 24, 2021 Subjective Patient is seen in ICU bed 6. She is feels better, mild cramps VSS Afebrile Vag packing dry I spoke to her and her family in waiting room. I will see her later with pictures from surgery. Continue to monitor at telemetry. Results & Data ([facility]) Vital Signs (Past 12 Hours) Vital Signs Temp Pulse Pulse Pulse Resp BP BP 09/24/21 17:50 62 15 09/24/21 17:40 64 13 09/24/21 17:30 66 21 09/24/21 17:20 69 16 09/24/21 17:10 71 14 09/24/21 18:00 36.6 C 68 13 09/24/21 17:04 36.4 C L 75 12 09/24/21 14:59 46 L 16 53/28 L 09/24/21 14:52 86 18 93/78 L 09/24/21 15:20 81 20 106/56 L 09/24/21 15:16 68 18 99/65 L 09/24/21 14:53 88 16 93/78 L 09/24/21 14:33 16 118/68 09/24/21 14:21 64 18 100/51 L 09/24/21 14:00 86 18 128/72 09/24/21 13:41 82 22 09/24/21 13:39 36.3 C L 127/83 09/24/21 13:50 77 17 129/70 BP Pulse Ox O2 Del Method O2 Flow Rate 09/24/21 17:50 93/61 L 100 Nasal Cannula 2 09/24/21 17:40 93/57 L 100 Nasal Cannula 2 09/24/21 17:30 95/64 L 98 Nasal Cannula 2 09/24/21 17:20 110/66 100 Nasal Cannula 2 09/24/21 17:10 103/65 100 Nasal Cannula 2 09/24/21 18:00 101/58 L 100 Nasal Cannula 2 09/24/21 17:04 96/60 L 100 Nasal Cannula 2 09/24/21 14:59 95 Nasal Cannula 2 09/24/21 14:52 98 Room Air 09/24/21 15:20 97 Nasal Cannula 2 09/24/21 15:16 100 09/24/21 14:53 95 Room Air 09/24/21 14:33 97 Room Air 09/24/21 14:21 100 Room Air 09/24/21 14:00 100 Room Air 09/24/21 13:41 98 Room Air 09/24/21 13:39 98 Room Air 09/24/21 13:50 100 Room Air
--- NOTE | 2021-09-24 19:06 | Operative Report (OR) ---
DATE OF SURGERY: 09/24/2021. PREOPERATIVE DIAGNOSES: The patient is a 41-year-old G4, P4-0-0-4, who is status post total laparoscopic hysterectomy for abnormal uterine bleeding on 09/09/2021, presenting now with heavy vaginal bleeding, hypotension/ shock, dropping H and H from 11 to 8 within an hour in the ER and requiring IV resuscitation and blood transfusion. POSTOPERATIVE DIAGNOSES: The patient is a 41-year-old G4, P4-0-0-4, who is status post total laparoscopic hysterectomy for abnormal uterine bleeding on 09/09/2021, presenting now with heavy vaginal bleeding, hypotension/ shock, dropping H and H from 11 to 8 within an hour in the ER and requiring IV resuscitation and blood transfusion. PROCEDURE: Exam under anesthesia, evacuation of blood cloths from vagina, exploratory laparoscopy, application of hemostatic agent/FloSeal on the vaginal cuff, vaginal packing. SURGEON: Rai Wen MD. [employer] CREWMEMBER: OR nurse. Dr Crum on bed side. ESTIMATED BLOOD LOSS: 500 in the OR and about 500 in the ER, making a total of 1000 ml. DRAINS: Malik catheter drained 500 mL of clear urine. ANESTHESIA: General ET. ANESTHESIOLOGIST: Dr. Sood. COMPLICATIONS: None. FINDINGS: Exam under anesthesia revealed blood clots on the perineum and large cloths coming through the vagina in lithotomy position. She passed clots a total of about 500 ml during vaginal preparation with Betadine solution. The speculum exam showed an intact cuff with intact sutures. No active bleeding, bimanual exam showed an intact cuff with no defect, no active bleeding, Laparoscopic findings: Normal upper abdomen including liver, stomach, omentum and bowels, no blood in abdomen or pelvis. Bilateral normal ovaries. Cuff is healing well. There was minimal oozing all over the cuff with no active bleeding. All the pedicles are intact and hemostatic. There was a mild adhesion of tip of the omentum onto the cuff, which was removed gently and no bleeding. DESCRIPTION OF PROCEDURE: The patient is a 41-year-old G4, P4-0-0-4, who had total laparoscopic hysterectomy on 09/09/2021 and was doing well until this afternoon when she started having severe abdominal cramps and vaginal bleeding, passing large amount of clots in a grocery store. She presented to ER with above symptoms in the ambulance. In the ER, she was passing large clots and ER physician collected 300 mL in the cup as well as he saw multiple clots coming from the vagina. Her pants and pads were soaked including the floor that she walked around. In the E. When I performed a pelvic exam. She passed another 200 ml clots and I was able to see the cuff, which was intact, but there was blood coming from the incision line, most likely from inside of the pelvis. She was packed with 2 large vaginal packings for hemostasis and Malik catheter was inserted. She was started on IV fluid bolus. Her blood pressure was initially normal and the right after that, she soaked the vaginal packing with bright red blood within a few minutes and blood pressure started dropping to 80s to 50s. Packing was removed and she passed more clots and decision was made to take her to the OR. She signed an informed consent. She understood risks and benefits of procedure. Then in the ER, her blood pressure dropped more.. She was started on rapid packed red blood transfusion and then vital signs improved. . DESCRIPTION OF PROCEDURE: She was taken to the OR with the above findings. She was placed in dorsal lithotomy position, prepared and draped in the usual standard sterile fashion. She was given general anesthesia without difficulty. At that point, she received 2 units of packed red blood cells and 2 liters of crystalloids and her blood pressures were stable. Her pulse was within normal limits and I emptied again clots from the vagina and then changed gloves and proceeded to the abdomen. A periumbilical skin incision was made from the prior incision about 12 mm with the scalpel and then the subcuticular fat tissue was dissected off with the tip of hemostat. Fascia was identified, grasped with 2 Gregoria clamps. It was elevated, it was entered with the tip of a scalpel and then with the tip of hemostat, peritoneum was punctured and then these fascial edges were sutured with 0 Vicryl to be tied to the trocar. An 11 mm trocar was placed through this incision and then CO2 gas was started, the pressure was set to 15 and a pneumoperitoneum was obtained. Then intra-abdominal placement was confirmed with the scope. Upon entry into the abdomen and pelvis, there appeared to be normal bowel surfaces, normal omentum, normal upper abdomen, liver and stomach and no blood. She was placed in Trendelenburg position and a 5 mm trocar was placed on the left lower quadrant with direct visualization with scope. There was a minimal adhesion of the omentum onto the vaginal cuff. It was dissected off gently with a grasper. No bleeding on the omentum edges. and then we were able to see the cuff, which was intact and no active bleeding. There was minimal oozing all over the cuff. All the pedicles were normal and hemostatic. Ovaries were normal. Cul-de-sac had small amount of pink fluid only. Then from the 5 mm trocar a suction tip was introduced. The pelvis was irrigated with warm normal saline and suctioned x2 and again the cuff was intact. We explored all the abdomen, gutters, bowels, pelvis again and again multiple times spending plenty of time. Again, we were not able to see any bleeder. Just for precaution, the cuff was covered with FloSeal / hemostatic agent. then CO2 and the light were stopped and attention was turned to the patient's vagina. There was no blood in the vagina. Gentle digital exam was done, unable to get any clots and my gloves were dry with no blood. A speculum was placed in the vagina. Cuff was seen to be intact. Sutures were intact. We did not see any bleeding. There was no opening, no oozing either. I did a gentle digital exam and unable to feel any defect or any bleeding, both times my fingers were dry with no blood. At that point, Dr. Crum and surgical dietary aide teacher PA were watching in the room and they agreed with findings. Vagina was packed with vaginal packing. Then gloves and gown were changed. We went back to the abdomen again put the scope in, there was no bleeding. All the findings were same and decision was made to end the procedure. All the instruments were removed from the patient's abdomen. Trocars were removed. CO2 gas was emptied. The fascial incision at the umbilical area was closed with 0 Vicryl with running sutures and then skin was closed with 4-0 Monocryl in a subcuticular fashion. The patient tolerated the procedure well. Sponge, lap, needle count was correct x2. She was given 2 units of packed red blood cells and she was stable and the other 2 units were held for possible use later. She was taken to ICU in stable condition. No complications happened. I was present during whole procedure. Dr. Crum was at the bedside, watching for the most part of the procedure. Job ID: [id number] [facility]
[2021-09-24] MEDS ORDERED: IBUPROFEN 600 MG TAB PO PRN (20:24)
--- NOTE | 2021-09-24 20:31 | Gynecologic Progress Note ---
Date of Service September 24, 2021 Assessment & Plan (1) Vaginal bleeding: Plan: Stable. Vaginal packing in place. Plan for removal of vaginal packing and franco catheter in the AM. CBC ordered for the AM. (2) Shock: Plan: Patient is hypotensive. IVF ordered. (3) S/P laparoscopic hysterectomy: Plan: Stable. On diagnostic laparoscopy vaginal cuff intact. No active bleeding or areas of laceration noted through the laparoscope or vaginally. (4) Episode of heavy vaginal bleeding: Plan: s/p Diagnostic laparoscopy. On diagnostic laparoscopy vaginal cuff intact. No active bleeding or areas of laceration noted through the laparoscope or vaginally.No etiology found for vaginal bleeding. Vaginal packing in place. Patient in ICU for observation. Admission and Anticipated Discharge Date Admission Date: September 24, 2021 Subjective s/p Diagnostic laparoscopy for vaginal bleeding. s/p total laparoscopic hysterectomy approximately 2 weeks ago for heavy menstrual bleeding. Patient reported gushing of blood in the grocery store this afternoon and presented to [facility] ED. Patient evaluated in the ED and was taken to the OR for suspected activity bleeding by Dr. Le. Patient was transfused 2 U PRBCs. Post-operatively, Patient is nauseous with cramps. Patient denies any vaginal bleeding. Franco catheter and vaginal packing are in place. Of note, Patient tested positive for COVID-19 on 09/17/2021. Previously treated with plavix. Physical Exam Constitutional: Patient is hypotensive. Respiratory: normal respiratory effort, lungs clear to auscultation Gastrointestinal (Abdomen): Soft, appropriately tender to palpation, non- distended, +BS. Laparoscopic incision site (2) with bandages that are not soiled. Genitourinary: Vaginal packing in place. Peripad is dry. No active bleeding visualized. Results & Data ([facility]) Vital Signs (Past 12 Hours) Vital Signs Temp Pulse Pulse Pulse Resp BP BP 09/24/21 19:35 102/63 09/24/21 19:35 75 18 09/24/21 19:30 69 16 09/24/21 19:30 97/61 L 09/24/21 19:25 98/58 L 09/24/21 19:25 72 14 09/24/21 19:20 98/67 L 09/24/21 19:20 71 12 09/24/21 19:15 100/63 09/24/21 19:15 78 22 09/24/21 19:10 100/69 09/24/21 19:10 69 13 09/24/21 19:05 98/64 L 09/24/21 19:05 69 14 09/24/21 19:00 69 15 09/24/21 19:00 103/64 09/24/21 18:55 70 16 09/24/21 18:55 100/68 09/24/21 18:50 100/66 09/24/21 18:50 67 13 09/24/21 18:45 100/62 09/24/21 18:45 73 15 09/24/21 18:40 108/62 09/24/21 18:40 71 15 09/24/21 18:35 99/68 L 09/24/21 18:35 73 17 09/24/21 18:30 103/68 09/24/21 18:30 84 22 09/24/21 18:29 86 21 09/24/21 17:50 62 15 09/24/21 17:40 64 13 09/24/21 17:30 66 21 09/24/21 17:20 69 16 09/24/21 17:10 71 14 09/24/21 18:00 36.6 C 68 13 09/24/21 17:04 36.4 C L 75 12 09/24/21 14:59 46 L 16 53/28 L 09/24/21 14:52 86 18 93/78 L 09/24/21 15:20 81 20 106/56 L 09/24/21 15:16 68 18 99/65 L 09/24/21 14:53 88 16 93/78 L 09/24/21 14:33 16 118/68 09/24/21 14:21 64 18 100/51 L 09/24/21 14:00 86 18 128/72 09/24/21 13:41 82 22 09/24/21 13:39 36.3 C L 127/83 09/24/21 13:50 77 17 129/70 BP Pulse Ox O2 Del Method O2 Flow Rate 09/24/21 19:35 09/24/21 19:35 09/24/21 19:30 09/24/21 19:30 09/24/21 19:25 09/24/21 19:25 09/24/21 19:20 09/24/21 19:20 09/24/21 19:15 09/24/21 19:15 09/24/21 19:10 09/24/21 19:10 09/24/21 19:05 09/24/21 19:05 09/24/21 19:00 09/24/21 19:00 09/24/21 18:55 09/24/21 18:55 09/24/21 18:50 09/24/21 18:50 09/24/21 18:45 09/24/21 18:45 09/24/21 18:40 09/24/21 18:40 09/24/21 18:35 09/24/21 18:35 09/24/21 18:30 09/24/21 18:30 100 09/24/21 18:29 100 09/24/21 17:50 93/61 L 100 Nasal Cannula 2 09/24/21 17:40 93/57 L 100 Nasal Cannula 2 09/24/21 17:30 95/64 L 98 Nasal Cannula 2 09/24/21 17:20 110/66 100 Nasal Cannula 2 09/24/21 17:10 103/65 100 Nasal Cannula 2 09/24/21 18:00 101/58 L 100 Nasal Cannula 2 09/24/21 17:04 96/60 L 100 Nasal Cannula 2 09/24/21 14:59 95 Nasal Cannula 2 09/24/21 14:52 98 Room Air 09/24/21 15:20 97 Nasal Cannula 2 09/24/21 15:16 100 09/24/21 14:53 95 Room Air 09/24/21 14:33 97 Room Air 09/24/21 14:21 100 Room Air 09/24/21 14:00 100 Room Air 09/24/21 13:41 98 Room Air 09/24/21 13:39 98 Room Air 09/24/21 13:50 100 Room Air
[2021-09-24] MEDS ORDERED: SODIUM CHLORIDE 0.9% 1000ML 1,000 ML IV SCH (20:45)
[2021-09-24] MEDS ORDERED: OR MISCELLANEOUS MED ONE (20:50)
[2021-09-25] MEDS: oxyCODONE/ACETAMINOPHEN 5mg/325mg TAB PO PRN ×3 (00:11→10:16)
[2021-09-25 07:51] LABS: Basophils # (auto) 0.02 K/uL (0-0.2); Basophils % (auto) 0.2 %; Hematocrit (blood only) 25.3 % (34.1-44.9); Hemoglobin 8.5 g/dl (12.0-16.0); Immature Granulocytes # (auto) 0.04 K/uL (0.00-0.02); Immature Granulocytes % (auto) 0.3 %; Lymphocytes # (auto) 1.32 K/uL (1.2-3.4); Lymphocytes % (auto) 11.3 %; Mean Corpuscular Hemoglobin 29.7 pg (25.0-34.0); Mean Corpuscular Hgb Conc 33.6 g/dL (32.0-36.0); Mean Corpuscular Volume 88.5 fL (80.0-100.0); Mean Platelet Volume 11.6 fL (9.4-12.3); Monocytes # (auto) 0.79 K/uL (0.24-0.82); Monocytes % (auto) 6.8 %; Neutrophils # (auto) 9.46 K/uL (1.4-6.5); Neutrophils % (auto) 81.4 %; Platelet Count 160 K/uL (130-400); RDW Coefficient of Variation 12.9 % (11.5-14.5); RDW Standard Deviation 41.3 fL (36.4-46.3); Red Blood Count 2.86 M/uL (3.93-5.22); White Blood Count 11.63 K/ul (4.8-10.8)
--- NOTE | 2021-09-25 09:19 | Gynecologic Progress Note ---
Date of Service September 25, 2021 Assessment & Plan Admission and Anticipated Discharge Date Admission Date: September 24, 2021 Subjective Postop day # 1 Patient is seen and examined Feels well, no complaints Pain is under control with oral meds No CP/ SOB/ Dizziness/ N&V/ VB/ Leg pain Not OOB yet Tolerating regular diet Flatus neg Explained about the surgery and findings Shown her pictures from [facility] Vital Signs Temp Pulse Resp BP Pulse Ox Pulse Ox O2 Del Method 09/25/21 08:30 82 22 99 09/25/21 08:00 76 18 100 09/25/21 08:00 104/71 09/25/21 07:30 70 16 99 09/25/21 07:00 71 16 99 09/25/21 07:00 103/67 09/25/21 06:30 77 19 97 09/25/21 07:54 36.8 C 09/25/21 06:00 74 19 98/65 L 98 Room Air 09/25/21 05:00 67 19 99/61 L 98 Room Air 09/25/21 04:00 37 C 69 19 96/64 L 99 Room Air 09/25/21 03:00 65 21 91/60 L 99 Room Air 09/25/21 02:00 72 19 97/62 L 98 Room Air 09/25/21 01:00 70 18 93/62 L 98 Room Air 09/25/21 00:30 82 18 100 Room Air 09/25/21 00:00 37 C 77 16 94/77 L 97 Room Air 09/24/21 23:30 68 18 98 Room Air 09/25/21 00:00 97 09/24/21 23:00 71 18 86/61 L 99 Room Air 09/24/21 22:30 69 16 99 Room Air 09/24/21 22:00 76 16 104/59 L 99 Room Air 09/24/21 21:30 80 15 100 Room Air O2 Del Method 09/25/21 08:30 09/25/21 08:00 09/25/21 08:00 09/25/21 07:30 09/25/21 07:00 09/25/21 07:00 09/25/21 06:30 09/25/21 07:54 09/25/21 06:00 09/25/21 05:00 09/25/21 04:00 09/25/21 03:00 09/25/21 02:00 09/25/21 01:00 09/25/21 00:30 09/25/21 00:00 09/24/21 23:30 09/25/21 00:00 Room Air 09/24/21 23:00 09/24/21 22:30 09/24/21 22:00 09/24/21 21:30 Intake & Output 09/24/21 09/25/21 09/25/21 22:59 06:59 14:59 Intake Total 3640 / 5000 360 / 5000 Output Total 1225 / 2650 425 / 2650 300 / 300 Balance 2415 / 2350 -65 / 2350 -300 / -300 Weight 80.2 kg 80.2 kg Intake: IV 1000 / 2000 Sodium Chloride 0.9% 1000ML 1, 1000 / 1000 000 ml @ 999 mls/hr IV .Q1H1M ONE Rx#:[id number] IV Perioperative 2400 / 2400 Oral 240 / 600 360 / 600 Intake (Blood Product) Amt 0 / 0 Packed Cells, Leukoreduced 0 / 0 Unit [id number] Packed Cells, Leukoreduced 0 / 0 Unit [id number] Output: Estimated Blood Loss 500 / 1500 Urine Amount (Catheter) 725 / 1150 425 / 1150 300 / 300 Franco/Indwelling 725 / 1150 425 / 1150 300 / 300 # Bowel Movements 0 / 0 0 / 0 Other: Weight Measurement Method Built in [facility] PE: General: Alert, orientedx3, NAD CVS: S1S2 RRR Lungs: CTAB Abd: soft, NT, ND, BS+, Incisions C/D/I No VB, packing is removed, dry, no blood Ext: NT, no edema/ erythema AP: 41 yo female s/p Exp Laparoscopy for postop bleeding, vaginal packing, EUA , pod#1 VSS Afebrile doing well Vag packing removed, no bleeding D/C franco, ambulate Continue to monitor Encourage PO intake, may ambulate Anticipate DC this afternoon Results & Data ([facility]) Vital Signs (Past 12 Hours) Vital Signs Temp Pulse Resp BP Pulse Ox Pulse Ox O2 Del Method 09/25/21 08:30 82 22 99 09/25/21 08:00 76 18 100 09/25/21 08:00 104/71 09/25/21 07:30 70 16 99 08/21/22 07:00 71 16 99 09/25/21 07:00 103/67 09/25/21 06:30 77 19 97 09/25/21 07:54 36.8 C 09/25/21 06:00 74 19 98/65 L 98 Room Air 09/25/21 05:00 67 19 99/61 L 98 Room Air 09/25/21 04:00 37 C 69 19 96/64 L 99 Room Air 09/25/21 03:00 65 21 91/60 L 99 Room Air 09/25/21 02:00 72 19 97/62 L 98 Room Air 09/25/21 01:00 70 18 93/62 L 98 Room Air 09/25/21 00:30 82 18 100 Room Air 09/25/21 00:00 37 C 77 16 94/77 L 97 Room Air 09/24/21 23:30 68 18 98 Room Air 09/25/21 00:00 97 09/24/21 23:00 71 18 86/61 L 99 Room Air 09/24/21 22:30 69 16 99 Room Air 09/24/21 22:00 76 16 104/59 L 99 Room Air 09/24/21 21:30 80 15 100 Room Air O2 Del Method 09/25/21 08:30 09/25/21 08:00 09/25/21 08:00 09/25/21 07:30 09/25/21 07:00 09/25/21 07:00 09/25/21 06:30 09/25/21 07:54 09/25/21 06:00 09/25/21 05:00 09/25/21 04:00 09/25/21 03:00 09/25/21 02:00 09/25/21 01:00 09/25/21 00:30 09/25/21 00:00 09/24/21 23:30 09/25/21 00:00 Room Air 09/24/21 23:00 09/24/21 22:30 09/24/21 22:00 09/24/21 21:30
--- NOTE | 2021-09-25 10:14 | Gynecologic Progress Note ---
Date of Service September 25, 2021 Assessment & Plan (1) Episode of heavy vaginal bleeding: Plan: AP: 41 yo female s/p Dx Laparoscopy for postop bleeding, vaginal packing, EUA , pod#1 VSS Afebrile doing well Vag packing removed, no bleeding D/C franco, ambulate Continue to monitor Encourage PO intake, may ambulate Anticipate DC this afternoon Admission and Anticipated Discharge Date Admission Date: September 24, 2021 Subjective POD#1. s/p diagnostic laparoscopy for vaginal bleeding. Patient is seen and examined. Patient without complaints. Pain is under control with oral medications. Tolerating regular diet. Vaginal packing removed this AM by Dr. Le. Vaginal packing was dry. No active bleeding. Reports headache. Denies N/V, fevers, chills, SOB or CP. Franco catheter still in place. Denies flatus. Vital Signs Temp Pulse Resp BP Pulse Ox Pulse Ox O2 Del Method 09/25/21 08:30 82 22 99 09/25/21 08:00 76 18 100 09/25/21 08:00 104/71 09/25/21 07:30 70 16 99 09/25/21 07:00 71 16 99 09/25/21 07:00 103/67 09/25/21 06:30 77 19 97 09/25/21 07:54 36.8 C 09/25/21 06:00 74 19 98/65 L 98 Room Air 09/25/21 05:00 67 19 99/61 L 98 Room Air 09/25/21 04:00 37 C 69 19 96/64 L 99 Room Air 09/25/21 03:00 65 21 91/60 L 99 Room Air 09/25/21 02:00 72 19 97/62 L 98 Room Air 09/25/21 01:00 70 18 93/62 L 98 Room Air 09/25/21 00:30 82 18 100 Room Air 09/25/21 00:00 37 C 77 16 94/77 L 97 Room Air 09/24/21 23:30 68 18 98 Room Air 09/25/21 00:00 97 09/24/21 23:00 71 18 86/61 L 99 Room Air 09/24/21 22:30 69 16 99 Room Air 09/24/21 22:00 76 16 104/59 L 99 Room Air 09/24/21 21:30 80 15 100 Room Air O2 Del Method 09/25/21 08:30 09/25/21 08:00 09/25/21 08:00 09/25/21 07:30 09/25/21 07:00 09/25/21 07:00 09/25/21 06:30 09/25/21 07:54 09/25/21 06:00 09/25/21 05:00 09/25/21 04:00 09/25/21 03:00 09/25/21 02:00 09/25/21 01:00 09/25/21 00:30 09/25/21 00:00 09/24/21 23:30 09/25/21 00:00 Room Air 09/24/21 23:00 09/24/21 22:30 09/24/21 22:00 09/24/21 21:30 Intake & Output 09/24/21 09/25/21 09/25/21 22:59 06:59 14:59 Intake Total 3640 / 5000 360 / 5000 Output Total 1225 / 2650 425 / 2650 300 / 300 Balance 2415 / 2350 -65 / 2350 -300 / -300 Weight 80.2 kg 80.2 kg Intake: IV 1000 / 2000 Sodium Chloride 0.9% 1000ML 1, 1000 / 1000 000 ml @ 999 mls/hr IV .Q1H1M ONE Rx#:[id number] IV Perioperative 2400 / 2400 Oral 240 / 600 360 / 600 Intake (Blood Product) Amt 0 / 0 Packed Cells, Leukoreduced 0 / 0 Unit [id number] Packed Cells, Leukoreduced 0 / 0 Unit [id number] Output: Estimated Blood Loss 500 / 1500 Urine Amount (Catheter) 725 / 1150 425 / 1150 300 / 300 Franco/Indwelling 725 / 1150 425 / 1150 300 / 300 # Bowel Movements 0 / 0 0 / 0 Other: Weight Measurement Method Built in [facility] Review of Systems Constitutional: as per Subjective / HPI Respiratory: as per Subjective / HPI Cardiovascular: as per Subjective / HPI Physical Exam Respiratory: normal respiratory effort, lungs clear to auscultation Cardiovascular: RRR, no murmur, no edema Gastrointestinal (Abdomen): Soft, appropriately tender to palpation, non- distended. Incisions: C/D/I. No erythema or edema. Bandage removed. Results & Data ([facility]) Vital Signs (Past 12 Hours) Vital Signs Temp Pulse Resp BP Pulse Ox Pulse Ox O2 Del Method 09/25/21 08:30 82 22 99 09/25/21 08:00 76 18 100 09/25/21 08:00 104/71 09/25/21 07:30 70 16 99 09/25/21 07:00 71 16 99 09/25/21 07:00 103/67 09/25/21 06:30 77 19 97 09/25/21 07:54 36.8 C 09/25/21 06:00 74 19 98/65 L 98 Room Air 09/25/21 05:00 67 19 99/61 L 98 Room Air 09/25/21 04:00 37 C 69 19 96/64 L 99 Room Air 09/25/21 03:00 65 21 91/60 L 99 Room Air 09/25/21 02:00 72 19 97/62 L 98 Room Air 09/25/21 01:00 70 18 93/62 L 98 Room Air 09/25/21 00:30 82 18 100 Room Air 09/25/21 00:00 37 C 77 16 94/77 L 97 Room Air 09/24/21 23:30 68 18 98 Room Air 09/25/21 00:00 97 09/24/21 23:00 71 18 86/61 L 99 Room Air 09/24/21 22:30 69 16 99 Room Air O2 Del Method 09/25/21 08:30 09/25/21 08:00 09/25/21 08:00 09/25/21 07:30 09/25/21 07:00 09/25/21 07:00 09/25/21 06:30 09/25/21 07:54 09/25/21 06:00 09/25/21 05:00 09/25/21 04:00 09/25/21 03:00 09/25/21 02:00 09/25/21 01:00 09/25/21 00:30 09/25/21 00:00 09/24/21 23:30 09/25/21 00:00 Room Air 09/24/21 23:00 09/24/21 22:30
--- NOTE | 2021-09-27 13:49 | Discharge Summary (DS) ---
DATE OF ADMISSION: 09/24/2021 DATE OF DISCHARGE: 09/25/2021. DETAILS OF ADMISSION: The patient is a 41-year-old G4, P4-0-0-4, who is status post a total laparoscopic hysterectomy on 09/09/[address] Gaytan. She was doing well until the day of admission when she presented to ER with heavy vaginal bleeding, passing clots with hypotension shock and dropping H and H from 11 to 8 in an hour. She required IV resuscitation and blood transfusion. She was found to have active vaginal bleeding from vaginal cuff. She was taken to the OR for exam under anesthesia, evacuation of blood clots from the vagina, exploratory laparoscopy, application of hemostatic agent on the vaginal cuff and vaginal packing by myself. Her surgery was uncomplicated except that she required blood transfusion and IV fluids and vital signs were stable and her exploration of the abdomen showed no bleeding, no abnormal findings and the vagina bleeding stopped and she was packed with vaginal packing and she was taken to ICU for recovery in stable condition. On postop period, patient was awake, was feeling better. She had dry vaginal packing. Vital signs were stable, afebrile. Her urine output was adequate. Her abdomen was soft and nontender. Incisions were clean, dry and intact. . The Malik catheter was draining clear light urine. She was seen by myself and Dr. Gaytan after surgery. On postoperative day #1, vital signs stable, afebrile. She is making enough urine. Her morning H and H was 8.5/25.3. Packing was removed by myself. It was dry with no bleeding and the Malik catheter was removed. She was ambulated, tolerated regular diet, used the bathroom, and then she was discharged on postoperative day #1. Discharge instructions were given. Prescriptions were written for pain. She is to be seen in the office in a week. Job ID: [id number] [facility]
== END 2021-09-25 12:10 | disposition home or self-care (01) ==
LOC: ED 13:25 → OR 15:20 → 1E 15:20 → OR 16:26

== ENCOUNTER 2022-06-27 10:07 | Observation (INO) ==
--- NOTE | 2022-06-16 16:06 | Anesthesiology Consultation ---
Date of Service June 16, 2022 Assessment & Plan (1) Encounter for pre-operative examination: Chart Review Chart Review: Acceptable Risk for Surgery and Patient NOT seen in Pre Admission Testing -COVID screening: Per PAT nursing assessment on 06/16/22. No known COVID-19 positive contacts or current COVID-19 related symptoms. Travel screen negative. Patient vaccinated for Covid. At surgeon discretion if preop Covid testing being done. Diagnostic lap 09/24/21= Done under GA with Grade 3 view at MAC #3. ETT #7.5. Atraumatic attempt History Surgery Operation Date: 06/27/22 07:30 Proposed Procedures p Panniculectomy - Lindsay Abdul MD Height/Weight Height: 5 ft 4 in Weight: 71.214 kg Allergies Allergy/AdvReac Type Severity Reaction Status Date / Time efavirenz Allergy Intermediate Rash Verified 06/16/22 15:29 lamivudine Allergy Intermediate Rash Verified 06/16/22 15:29 Penicillins Allergy Intermediate Rash Verified 06/16/22 15:29 sulfamethoxazole Allergy Intermediate Globus Verified 06/16/22 15:29 [From Bactrim] sensation trimethoprim [From Bactrim] Allergy Intermediate Globus Verified 06/16/22 15:29 sensation zidovudine Allergy Intermediate Rash Verified 06/16/22 15:29 Medications Home Medications Medication Instructions Recorded Confirmed Last Taken bupropion HCl 150 mg 24 hr tablet, 300 mg PO QAM 03/21/18 06/16/22 09/08/21 07:00 extended release carisoprodol 350 mg tablet (Soma) 350 mg PO TID PRN muscle pain 01/22/1909/06/21 lubiprostone 24 mcg capsule 24 mcg PO BID 07/24/19 06/16/22 09/08/21 18:30 (Amitiza) ketorolac 10 mg tablet 10 mg PO QAM PRN Pain 04/02/20 06/16/22 04/08/20 15:00 rimegepant 75 mg disintegrating 75 mg PO UD PRN MIGRAINES 04/02/20 06/16/22 09/08/21 20:30 tablet (Nurtec ODT) tramadol 50 mg tablet 50 mg PO Q6H PRN migraines 04/07/21 06/16/22 09/08/21 17:00 mevsalktic-knhqxllijcnld-gqqpymdd 1 cap PO Q4H PRN Migraine Headache 05/07/21 06/16/22 09/06/21 50 mg-300 mg-40 mg capsule nystatin 100,000 unit/gram topical 1 applic topical BID #15 grams 12/23/2101/27 Unknown cream oxycodone-acetaminophen 5 mg-325 1 tab PO Q4H PRN pain 3 days #18 06/13/22 06/13/22 Unknown mg tablet (Percocet) tabs cholecalciferol (vitamin D3) 50 50 mcg PO QAM 06/16/22 06/16/22 Unknown mcg (2,000 unit) capsule (Vitamin D3) docusate sodium 100 mg capsule 100 mg PO BID 06/16/22 06/16/22 Unknown (Colace) phentermine 30 mg capsule 30 mg PO QDL 06/16/22 06/16/22 Unknown topiramate 25 mg tablet (Topamax) 25 mg PO BID 06/16/22 06/16/22 Unknown Past Medical History Medical History Chronic constipation Depression Difficult intubation Laparoscopic Cholecystectomy with Cholangiogram Laparoscopic Appendectomy Dr. Maldonado 04/22/2020. Grade 3 view, Pantoja 2, glidescope 4, ETT 7.5. 3 attempts. Fatty liver Possible (per ultrasound) History of COVID-19 02/2021, pcr test, not hospitalzied, muscle aches, "respiratory sym ptoms">resolved. Hx of fall 2021, fractured 1 rib "now healed" Low back pain radiating to lower extremity Migraines Myofascial pain Postoperative hemorrhage hx following hysterectomy 09/2021 [place] Past Family History Family History Father Diabetes Mother Diabetes Cancer Uterine Cancer Hypertension Sister Diabetes Hypertension Grandmother (Maternal) Cancer Uterine cancer Brother Diabetes Other No significant family history Past Surgical History Surgical History History of arthroscopy of right shoulder Right shoulder arthroscopy, RCR: 09/25/19[place]4 [place] [facility] [place] of colonoscopy History of dilation and curettage D&E History of laparoscopic appendectomy (04/22/20) Laparoscopic Cholecystectomy with Cholangiogram Laparoscopic Appendectomy Dr. Maldonado 04/22/2020. Grade 3 view, Pantoja 2, glidescope 4, ETT 7.5. 3 attempts. History of laparoscopy Hx of colonoscopy Hx of endoscopy Hx of tubal ligation S/P laparoscopic hysterectomy Social History Smoking Status: Never smoker Do You Dip or Chew Tobacco: No Hx Alcohol Use: No alcohol intake frequency: holidays/special occasions only Hx Substance Use: No substance use type: does not use Lab Results Anesthesia Preop Results Results Anesthesia Widget: WBC 4.12 K/ul (4.8-10.8) L 06/16/22 Hgb 13.6 g/dl (12.0-16.0) 06/16/22 Hct 40.1 % (37.0-47.0) 06/16/22 Plt 166 K/uL (130-400) 06/16/22 Na 137 mmol/L (136-145) 06/16/22 K 3.5 mmol/L (3.5-5.1) 06/16/22 Cl 105 mmol/L (98-107) 06/16/22 CO2 28 mmol/L (21-32) 06/16/22 BUN 13 mg/dl (6-23) 06/16/22 Creat 0.92 mg/dl (0.6-1.2) 06/16/22 Glucose Level 97 mg/dl (70-99(Fasting)) 06/16/22 PT 11.4 Seconds (9.0-12.0) 06/16/22 INR 1.0 (0.9-1.1) 06/16/22
[~2022-06-27 10:07] MED LIST changes: +CLINDA 900 MG **Premixed Bag IV SCH; +DEXAMETHASONE SOD INJ 4 MG/ML VIAL ONE; +LACTATED RINGER'S 1,000 ML IV SCH; +LIDOCAINE 2% 2 ML VIAL/AMP(20MG/ML) INFIL ONE; +MIDAZOLAM HCL 1 MG/ML 2ML VIAL ONE; +ONDANSETRON INJ 2 MG/ML 2 ML VIAL ONE; +PROPOFOL IV EMULSION 10 MG/ML 20 ML VIAL IV ONE; +ROCURONIUM BROMIDE 10 MG/ML 5 ML VIAL IV ONE; -SODIUM CHLORIDE 0.9% 1000ML 1,000 ML IV SCH; +fentaNYL citrate PF 100 MCG/2 ML VIAL ONE
--- NOTE | 2022-06-27 10:45 | History & Physical Bridge Note ---
Date of Service June 27, 2022 History & Physical Bridge Note I have examined the patient, reviewed the History & Physical and in the interval since the performance of the History & Physical I have noted the following changes of clinical significance: no changes noted
[2022-06-27] MEDS ORDERED: BUPIVACAINE 0.25% PF 30 ML VIAL ONE (11:15)
[2022-06-27] MEDS ORDERED: LIDOCAINE 1%/EPINEPHRINE 1:100,000 20 ML VIAL ONE (11:15)
[2022-06-27] MEDS ORDERED: PROMETHAZINE HCL 12.5 MG in SODIUM CHLORIDE 0.9% 50 ML IV PRN ×2 (11:20→15:16)
[2022-06-27] MEDS ORDERED: ATROPINE SULFATE 0.1 MG/ML 10ML SYR IV PRN (11:20)
[2022-06-27] MEDS ORDERED: HYDROmorphone INJ 2 MG/ML SYR/VIAL IV PRN (11:20)
[2022-06-27] MEDS ORDERED: ONDANSETRON INJ 2 MG/ML 2 ML VIAL IV PRN ×2 (11:20→15:16)
[2022-06-27] MEDS ORDERED: ePHEDrine sulfate 50 MG/ML AMP IV PRN (11:20)
[2022-06-27] MEDS ORDERED: ROCURONIUM BROMIDE 10 MG/ML 5 ML VIAL IV ONE (11:50)
[2022-06-27] MEDS ORDERED: DEXAMETHASONE SOD INJ 4 MG/ML VIAL ONE (11:52)
[2022-06-27] MEDS ORDERED: HYDROmorphone INJ 1 MG/ML SYRINGE ONE (12:00)
[2022-06-27] MEDS ORDERED: GLYCOPYRROLATE 0.2 MG/ML VIAL ONE (13:00)
--- NOTE | 2022-06-27 13:40 | Post Operative Brief Note ---
PG Immediate Post Op with CF Date of Surgery June 27, 2022 Pre & Post Diagnosis Operation Date: 06/27/22 11:50 Pre-Op Diagnosis: Abdominal Pannus Post-Op Diagnosis: Abdominal Pannus I identified the patient and participated in the time-out.: Yes Procedure Operation Date: 06/27/22 11:50 Actual Procedures p Abdominoplasty(Not Applicable) - Lindsay Abdul MD Surgeon Lindsay Abdul MD Chef Head Mary Lou Velarde PA-C Estimated Blood Loss 15 Findings Consistent with Post-Op Diagnosis Specimens Specimen Description: A. Pannus Drains Malik Catheter (16 divehi Malik inserted prior to begining of procedure by Oanh Mesa RN ) and Jose-Rutherford Drain
--- NOTE | 2022-06-27 13:46 | Operative Report ---
PG Post Operative Report Pre & Post Diagnosis Operation Date: 06/27/22 11:50 Pre-Op Diagnosis: Abdominal Pannus Post-Op Diagnosis: Abdominal Pannus I identified the patient and participated in the time-out.: Yes Procedure Operation Date: 06/27/22 11:50 Actual Procedures p Abdominoplasty(Not Applicable) - Lindsay Abdul MD Surgeon Lindsay Abdul MD Inclusion Manager Mary Lou Velarde PA-C Estimated Blood Loss 15 Findings Consistent with Post-Op Diagnosis Specimens abdominal pannus Drains JPx2 Anesthesia Type General Complications none Indications s/p 45 lb weight loss, excess skin and intertrigo; desiring cosmetic improvement in the upper abdomen Description of Procedure The risks, benefits, and alternatives of the procedure were explained to the patient, who agreed and signed consent. She was identified and marked in the preoperative holding area. She was brought to the operating room, where she was positioned supine and placed under general anesthesia without incident. A franco catheter was placed. Surgical site was prepped and draped sterilely. A time-out procedure was performed. I reassessed my markings which included a lower horizontal abdominal incision just below her prior Pfannenstiel incision. Incision was marked bilaterally to the ASIS. I began by injecting 1% lidocaine with epinephrine along the planned incision. The lower abdominal incision was made using a 15-blade scalpel to incise epidermis and superficial dermis followed by electrocautery to incise deep dermis, subcutaneous fat, Epi's fascia down to the abdominal wall. Electrocautery was used to elevate the anterior abdominal skin flap ligating the perforating vessels with electrocautery. Dissection was carried up to the level of the umbilicus in the midline. At this point, a 15-blade scalpel was used to circumscribe the umbilicus. A vertical midline incision was then made from the incision to the umbilicus and divided in the midline using electrocautery. The umbilicus was then dissected out using electrocautery down to abdominal wall. The umbilical stalk appeared viable throughout the procedure. At this point the nursing staff was notified that dissection of the upper abdomen was beginning and the time was noted.I continued undermining the abdominal wall skin flap above the umbilicus to the xiphoid process, significantly narrowing the dissection to avoid jeopardizing blood supply.There was no noteworthy diastasis and therefore, as discussed with the patient, no plication was performed. Umbilical stalk was shortened using a 15 blade scalpel. At this point, the bed was flexed and the mid portion of the superior skin flap was inset above the mons pubis using 2-0 Vicryl suture. Staff was notified that the cosmetic upper abdominal dissection portion was complete. Skin flaps were marked for excision. A 15-blade scalpel was used to make these incisions and the incision was deepened through dermis, subcutaneous fat, Epi's fat using electrocautery. 15 Slovak Jose Manuel drains were placed in the wound bed and brought out through a separate stab incision in the mons pubis. The drains were sutured into place using 3-0 nylon. The umbilicus was brought out through an inverted triangular incision in the abdominal wall. This was performed using a 15-blade scalpel.Wound closure was then begun lateral to medial using 2-0 Vicryl Epi's fascia sutures, 2-0 Kali ryl deep dermal sutures, 2-0 PDO running superficial Quill suture, 3-0 Monocryl running subcuticular suture. Umbilicus was brought out through the inverted triangle incision and was sutured into place using 4-0 chromic half buried horizontal mattress sutures. The umbilicus was dressed using Xeroform and the incision was dressed using Dermabond Prineo followed by dry dressings and an abdominal binder. The procedure was tolerated well. The patient was awakened and transferred to recovery in satisfactory condition. Dry dressings and an abdominal binder were placed. The patient was awakened and transferred to recovery in satisfactory condition. Mary Lou Velarde PA-C was present and scrubbed throughout the entire procedure, assisting with retraction and simultaneous wound closure. I attest to the content of the Intraoperative Record and any orders documented therein. Any exceptions are noted below.
[2022-06-27] MEDS: fentaNYL citrate PF 100 MCG/2 ML VIAL IV PRN ×4 (13:54→14:15)
--- NOTE | 2022-06-27 15:05 | Anesthesiology Progress Note ---
Date of Service June 27, 2022 Anesthesia Post Procedure Vital Signs Vital Signs: Temp Pulse Pulse Resp BP Pulse Ox O2 Del Method 06/27/22 14:45 71 13 113/81 100 Room Air 06/27/22 14:35 36.8 C 68 12 109/75 100 Room Air 06/27/22 14:25 72 15 125/81 100 Room Air 06/27/22 14:15 81 16 127/82 99 Room Air 06/27/22 14:05 71 12 128/77 100 Oxymask 06/27/22 13:55 79 16 120/78 100 Oxymask 06/27/22 13:47 36.4 C L 83 14 128/81 99 Oxymask 06/27/22 10:25 36.6 C 76 20 109/80 100 Room Air O2 Flow Rate 06/27/22 14:45 06/27/22 14:35 06/27/22 14:25 06/27/22 14:15 06/27/22 14:05 13 06/27/22 13:55 13 06/27/22 13:47 13 06/27/22 10:25 Pain Intensity Abdomen: Pain Intensity: 3 Transfer of Care Handoff Completed per policy Notes Mental Status: alert / awake / arousable Patient Amnestic to Procedure: Yes Nausea / Vomiting: adequately controlled Pain: adequately controlled Airway Patency, RR, SpO2: stable & adequate BP & HR: stable & adequate Hydration State: stable & adequate Anesthetic Complications: no major complications apparent
[2022-06-27] MEDS ORDERED: diphenhydrAMINE Capsule 25 MG CAP PO PRN (15:16)
[2022-06-27] MEDS ORDERED: oxyCODONE/ACETAMINOPHEN 5mg/325mg TAB PO PRN (15:16)
[2022-06-27] MEDS ORDERED: MoRPHine SULFATE 2 MG/ML CARP IV PRN (15:16)
[2022-06-27] MEDS ORDERED: diphenhydrAMINE 50 MG/ML VIAL IV PRN (15:16)
[2022-06-27] MEDS ORDERED: MoRPHine SULFATE 4 MG/ML 1 ML CARP\\VIAL IV PRN (15:16)
[2022-06-27] MEDS ORDERED: CARISOPRODOL 350 MG TABLET PO PRN (15:16)
[2022-06-27] MEDS ORDERED: ACETAMINOPHEN 325 MG TAB PO PRN (15:16)
[2022-06-27] MEDS: CLINDAMYCIN/D5W 600 MG/50 ML BAG IV SCH (16:23)
[2022-06-27] MEDS: D5W AND 1/2NSS 1,000 ML IV SCH (16:23)
[2022-06-27] MEDS: oxyCODONE/ACETAMINOPHEN 5mg/325mg TAB PO PRN ×2 (16:37→21:09)
[2022-06-27] MEDS: LUBIPROSTONE 8 MCG CAP PO SCH (20:01)
[2022-06-27] MEDS: DOCUSATE SODIUM 100 MG CAP PO SCH (20:02)
[2022-06-27] MEDS: TOPIRAMATE 25 MG TAB PO SCH (20:02)
[2022-06-28] MEDS: CLINDAMYCIN/D5W 600 MG/50 ML BAG IV SCH ×2 (00:04→08:20)
[2022-06-28] MEDS: oxyCODONE/ACETAMINOPHEN 5mg/325mg TAB PO PRN ×2 (01:55→06:20)
[2022-06-28] MEDS: D5W AND 1/2NSS 1,000 ML IV SCH (06:12)
--- NOTE | 2022-06-28 07:19 | Surgery Progress Note ---
Date of Service June 28, 2022 Assessment & Plan (1) S/P panniculectomy: Plan: POD #1. Doing very well. D/C home today after able to void, office follow-up tomorrow. Admission and Anticipated Discharge Date Admission Date: June 27, 2022 Subjective Samia is resting comfortable in bed. Malik has been removed, but she has not attempted to void yet. Pain is well controlled. Physical Exam Physical Exam: abd binder in place, no saturation on gauze. drains with scant serosang output Results & Data Vital Signs (Past 12 Hours) Vital Signs Temp Pulse Resp BP Pulse Ox O2 Del Method 06/28/22 06:06 36.8 C 85 16 99/64 L 98 Room Air 06/28/22 01:50 36.7 C 76 17 110/67 98 Room Air 06/27/22 20:00 Room Air 06/27/22 22:07 36.7 C 69 16 99/67 L 98 Room Air PG Care Time/CCT Total # of Minutes Spent Total Time Spent with Patient: Total time spent is greater than 50% in coordination of care (as documented) at patient's floor/unit and/or counseling patient: Coding Level of Care Code 72317 Post Operative Follow-Up Diagnoses S/P panniculectomy Z98.890
[2022-06-28] MEDS: LUBIPROSTONE 8 MCG CAP PO SCH (08:19)
[2022-06-28] MEDS: DOCUSATE SODIUM 100 MG CAP PO SCH (08:20)
[2022-06-28] MEDS: TOPIRAMATE 25 MG TAB PO SCH (08:20)
[2022-06-28] MEDS ORDERED: buPROPion XL 300 MG TABCR PO SCH (09:00)
--- NOTE | 2022-06-28 11:52 | Discharge Summary ---
Date of Service June 28, 2022 Admission HPI Per Admitting Provider History of symptomatic abdominal pannus. Admission Exam Per Admitting Provider large abdominal pannus Principal Diagnosis abdominal pannus Discharge Exam abd binder in place, no saturation on gauze. drains with scant serosang output Discharge Data Allergies Allergy/AdvReac Type Severity Reaction Status Date / Time efavirenz Allergy Intermediate Rash Verified 06/27/22 10:32 lamivudine Allergy Intermediate Rash Verified 06/27/22 10:32 Penicillins Allergy Intermediate Rash Verified 06/27/22 10:32 sulfamethoxazole Allergy Intermediate Globus Verified 06/27/22 10:32 [From Bactrim] sensation trimethoprim [From Bactrim] Allergy Intermediate Globus Verified 06/27/22 10:32 sensation zidovudine Allergy Intermediate Rash Verified 06/27/22 10:32 Procedures Performed Operation Date: 06/27/22 11:50 Actual Procedures p Abdominoplasty(Not Applicable) - Lindsay Abdul MD Hospital Course (1) S/P panniculectomy: Patient presented to [facility] with history of abdominal pannus. She was taken to the OR and underwent abdominoplasty. There were no intraoperative complications. She was taken to recovery and transferred to med/surg for observation. On POD#1, she was feeling well. She was tolerating a regular diet and ambulating. She was able to void after catheter was removed. On exam, her vitals were stable. Her incisions were CDI. Her drains had appropriate output. She was discharged home with instructions to follow-up in the office in one day. Total Time Total Time Spent Total Time Spent (In Minutes): 15 Total Time Includes: Examination of the Patient, Medication Reconciliation and Communication With Other Providers Discharge Plan Discharge Items Patient Disposition: Home - Self-Care Reason For Visit: Abdominal Pannus Discharge Diagnosis: s/p abdominoplasty Activity: As commented below Non-emergency contact: Surgeon Call non-emergency contact if: you have any medication questions, your pain is not controlled, you have a fever, your wound has increased redness and your wound has increased drainage Follow-up/Referrals: Mary Lou Velarde PA-C [Physician Licensed Home Inspector] - Geovani Sebastian MD [Primary Care Provider] - Diet: Regular Addtl Attending Provider Instructions: ACTIVITY RECOMMENDATIONS: __Normal activities _x_No bending, lifting or straining. Do not stand or lay flat until it easily comfortable. __No driving __Driving allowed when you are off pain medications _x_Walking permitted __You should have help at home for ___ days DRESSINGS: __No dressings required _x_Keep dressings dry/in place until first office visit. Binder must stay on. __Remove dressings ___ and leave dressings off __Apply ice ___ days __Remove dressings and reapply garment __Apply antibiotic ointment (Bacitracin, Neosporin, etc) to wounds 3-4 times/day for 10 days BATHING: _x_Keep dressings dry _x_Sponge bathing permitted away from surgical dressings __Showering permitted _x_No swimming, hot tubs or soaking in a tub MEDICATIONS: Resume previous medications unless instructed otherwise by your surgeon. _x_Do not use aspirin, Motrin, Advil or Ibuprofen as these may promote bleeding. Please use Tylenol. _x_Prescription(s) provided: pain medication was prescribed at your last office visit OTHER INSTRUCTIONS: _x_Record drain output 2-3 times per day SPECIAL CARE INSTRUCTIONS: * It is normal to have a mild fever after surgery. If your temperature is higher than 101.5 degrees F, please call the office at [phone]. * Constipation is a typical side effect of pain medication. An zbhl-smv-pcrlusb stool softener will help relieve this. * Leaking around surgical drains may occur and should not cause concern. Sometimes these drains become clogged. If this happens, remove the bulb and milk the clot out of the tube, then replace the bulb. * Drainage from wounds after liposuction is normal and should be expected. Garments will become soiled. You should protect furniture and bedding. This drainage should mostly subside within 2-3 days. Leave garments in place unless instructed to remove them. * If you have unusual drainage from a wound or are concerned you have an infection or have any questions or concerns, please call the office at [phone]. FOLLOW UP VISIT: If not already scheduled, please call the office, , when you return home after surgery to schedule an appointment to be seen in _1__ days. Pending Studies at Discharge: Yes Studies:: pathology Stand-Alone Forms: My [facility] [address], Pain - Opioid Pain Management, Smoking Cessation Medications and DC Order Prescriptions: Continued tramadol 50 mg tablet 50 mg PO Q6H PRN (Reason: migraines) carisoprodol [Soma] 350 mg tablet 350 mg PO TID PRN (Reason: muscle pain) Amitiza 24 mcg capsule 24 mcg PO BID nystatin 100,000 unit/gram cream 1 applic topical BID Qty: 15 0RF Rx Instructions: Please apply to affected area. oxycodone-acetaminophen [Percocet] 5-325 mg tablet 1 tab PO Q4H PRN (Reason: pain) 3 Days Qty: 18 0RF Rx Instructions: Initial therapy. bupropion HCl 150 mg tablet extended release 24 hr 300 mg PO QAM ketorolac 10 mg Tablet 10 mg PO QAM PRN (Reason: Pain) Nurtec ODT 75 mg Tablet,Disintegrating 75 mg PO UD PRN (Reason: MIGRAINES) segmhsecdw-ganzuemjuioir-npao 50-300-40 mg capsule 1 cap PO Q4H PRN (Reason: Migraine Headache) Hold Instructions: surgery topiramate [Topamax] 25 mg Tablet 25 mg PO BID docusate sodium [Colace] 100 mg Capsule 100 mg PO BID phentermine 30 mg Capsule 30 mg PO QDL Rx Instructions: must administer 2 hours after breakfast cholecalciferol (vitamin D3) [Vitamin D3] 50 mcg (2,000 unit) Capsule 50 mcg PO QAM Discharge Orders: Discharge Order (Routine); Ordered 06/28/22 Ordered By: Mary Lou Fritz/Other Patient Handouts: DVT Post Op Prevention Admission Data Admit Date/Time: 06/27/22 13:49 Attending Provider: Lindsay Abdul Admit Provider: Lindsay Abdul Primary Care Provider: Geovani Sebastian Other Interventions: Discharge Summary Assessment (RN) Last Done: 06/28/22 09:40 Coding Level of Care Code 87457 OBS Care - Discharge Diagnoses S/P panniculectomy Z98.890
== END 2022-06-28 10:45 | disposition home or self-care (01) ==
LOC: ASU 10:07 → 3E 10:07